=== PATIENT | female | born 1995 | race African-American/Black ===

== ENCOUNTER 2018-11-26 15:54 | Emergency (ER) | payer OTHER ==
[~2018-11-26] VITALS: Ht 170.2 cm; Wt 104.5 kg
[~2018-11-26 15:54] MED LIST: FLUT16H NASAL; OLAN2.5T3 PO; SERT50TA12 PO; TRAZ-252 PO
[2018-11-26] MEDS ORDERED: HALOPERIDOL LACTATE 5 MG/ML VIAL IM ONE (16:30)
[2018-11-26] MEDS ORDERED: DiphenhydrAMINE HCL 50 MG/ML VIAL IM ONE (16:30)
[2018-11-26] MEDS ORDERED: LORazepam 2 MG/ML VIAL IM ONE (16:30)
[2018-11-26] MEDS ORDERED: QUET100T PO (16:59)
[2018-11-26 17:55] LABS: BASOPHILS % (AUTO) 0.8 % (0.0-2.0); EOSINOPHILS % (AUTO) 0.8 % (1.0-6.0); HEMATOCRIT 32.2 % (36-46); HEMOGLOBIN 10.4 g/dL (12.0-16.0); LYMPHOCYTES # (AUTO) 1.7 K/uL (1.0-4.8); LYMPHOCYTES % (AUTO) 22.4 % (22.0-44.0); MEAN CORPUSCULAR HEMOGLOBIN 26.8 pg (26.0-34.0); MEAN CORPUSCULAR HGB CONC 32.4 G/dL (31.0-37.0); MEAN CORPUSCULAR VOLUME 83 fL (80-100); MONOCYTES # (AUTO) 1.1 K/uL (0.1-1.0); MONOCYTES % (AUTO) 13.9 % (2.0-9.0); NEUTROPHILS # (AUTO) 4.7 K/uL (1.8-7.7); NEUTROPHILS % (AUTO) 62.1 % (40.0-70.0); PLATELET COUNT (AUTO) 303 K/uL (150-450); RED BLOOD CELL COUNT(AUTO) 3.88 MIL/uL (4.00-5.20); RED CELL DISTRIBUTION WIDTH 16.3 % (11.5-14.5)
[2018-11-26 18:11] LABS: ANION GAP 12 mmol/L (8-16); CALCIUM, TOTAL 9.3 mg/dL (8.8-10.5); CARBON DIOXIDE 23 mmol/L (22-29); CHLORIDE 106 mmol/L (98-107); CREATININE 1.06 mg/dL (0.60-1.30); GLOMERULAR FILTR. RATE CALC > 60 mL/min (>60); GLUCOSE,RANDOM 82 mg/dL (70-110); POTASSIUM 3.2 mmol/L (3.5-5.1); SODIUM SERUM 141 mmol/L (136-145); UREA NITROGEN, BLOOD 12 mg/dL (7-18)
[2018-11-26 18:24] LABS: ALANINE AMINOTRANSFERASE 23 U/L (12-78); ALBUMIN 3.6 g/dL (3.4-5.0); ALKALINE PHOSPHATASE 77 U/L (46-116); ASPARTATE AMINOTRANSFERASE 21 U/L (15-37); BILIRUBIN,TOTAL 0.4 mg/dL (0.1-1.0); HCG,QUANTITATIVE < 1 mIU/mL (0-6); TOTAL PROTEIN, SERUM 6.6 g/dL (6.4-8.2)
[2018-11-26 20:01] LABS: AMPHET/METH SCREEN,URINE POSITIVE (NEGATIVE); BARBITURATE SCREEN, URINE NEGATIVE (NEGATIVE); BENZODIAZEPINES SCREEN,URINE NEGATIVE (NEGATIVE); CANNABINOID SCREEN,URINE NEGATIVE (NEGATIVE); COCAINE SCREEN,URINE NEGATIVE (NEGATIVE); METHADONE SCREEN, URINE NEGATIVE (NEGATIVE); OPIATE SCREEN,URINE NEGATIVE (NEGATIVE)
[2018-11-26 20:09] LABS: PHENCYCLIDINE SCREEN,URINE NEGATIVE (NEGATIVE)
[2018-11-26 23:40] VITALS: BP 115/62
== END 2018-11-27 00:34 | disposition short-term general hospital (02) ==
LOC: EMS 15:54
DX: F31.9 Bipolar disorder, unspecified (principal); F41.9 Anxiety disorder, unspecified; Z79.899 Other long term (current) drug therapy
CPT/HCPCS: 36415; 80053; 80307; 84702; 85025; 96372; 99291; G0480; J1200; J1630; J2060

== ENCOUNTER 2019-01-23 08:52 | Emergency (ER) | payer OTHER ==
[~2019-01-23] VITALS: Ht 177.8 cm; Wt 104.5 kg
[~2019-01-23 08:52] MED LIST changes: -FLUT16H NASAL; -OLAN2.5T3 PO; +QUET100T PO; -TRAZ-252 PO
[2019-01-23 11:32] LABS: EOSINOPHILS % (AUTO) 2.3 % (1.0-6.0); HEMATOCRIT 37.4 % (36-46); HEMOGLOBIN 11.8 g/dL (12.0-16.0); LYMPHOCYTES # (AUTO) 1.8 K/uL (1.0-4.8); LYMPHOCYTES % (AUTO) 28.7 % (22.0-44.0); MEAN CORPUSCULAR HEMOGLOBIN 27.3 pg (26.0-34.0); MEAN CORPUSCULAR HGB CONC 31.4 G/dL (31.0-37.0); MEAN CORPUSCULAR VOLUME 87 fL (80-100); MONOCYTES # (AUTO) 0.5 K/uL (0.1-1.0); MONOCYTES % (AUTO) 7.5 % (2.0-9.0); NEUTROPHILS # (AUTO) 3.8 K/uL (1.8-7.7); NEUTROPHILS % (AUTO) 60.5 % (40.0-70.0); PLATELET COUNT (AUTO) 284 K/uL (150-450); RED BLOOD CELL COUNT(AUTO) 4.31 MIL/uL (4.00-5.20)
[2019-01-23 11:43] LABS: ANION GAP 12 mmol/L (8-16); CALCIUM, TOTAL 9.3 mg/dL (8.8-10.5); CARBON DIOXIDE 24 mmol/L (22-29); CHLORIDE 106 mmol/L (98-107); CREATININE 1.19 mg/dL (0.60-1.30); GLOMERULAR FILTR. RATE CALC > 60 mL/min (>60); GLUCOSE,RANDOM 75 mg/dL (70-110); POTASSIUM 3.6 mmol/L (3.5-5.1); SODIUM SERUM 142 mmol/L (136-145); UREA NITROGEN, BLOOD 13 mg/dL (7-18)
[2019-01-23 11:54] LABS: ALANINE AMINOTRANSFERASE 20 U/L (12-78); ALBUMIN 3.5 g/dL (3.4-5.0); ALKALINE PHOSPHATASE 83 U/L (46-116); ASPARTATE AMINOTRANSFERASE 18 U/L (15-37); BILIRUBIN,TOTAL 0.3 mg/dL (0.1-1.0); HCG,QUANTITATIVE < 1 mIU/mL (0-6); TOTAL PROTEIN, SERUM 7.4 g/dL (6.4-8.2)
[2019-01-23] MEDS ORDERED: QUEtiapine FUMARATE 100 MG TABLET PO ONE (12:30)
[2019-01-23] MEDS ORDERED: LORazepam 2 MG/ML VIAL IM ONE ×2 (12:45→15:15)
[2019-01-23] MEDS ORDERED: HALOPERIDOL LACTATE 5 MG/ML VIAL IM ONE ×2 (12:45→15:15)
[2019-01-23] MEDS ORDERED: DiphenhydrAMINE HCL 50 MG/ML VIAL IM ONE ×2 (12:45→15:15)
[2019-01-23 17:42] VITALS: BP 116/73
== END 2019-01-23 18:17 | disposition short-term general hospital (02) ==
LOC: EMS 08:53
DX: F32.3 Major depressive disorder, single episode, severe with psychotic features (principal); R45.851 Suicidal ideations; F41.9 Anxiety disorder, unspecified; Z79.899 Other long term (current) drug therapy
CPT/HCPCS: 36415; 80053; 84702; 85025; 93005; 96372; 99291; G0480; J1200; J1630; J2060

== ENCOUNTER 2019-03-23 05:02 | Emergency (ER) | payer OTHER ==
[~2019-03-23] VITALS: Ht 170.2 cm; Wt 113.6 kg
[2019-03-23] MEDS ORDERED: HALOPERIDOL 5 MG TABLET PO ONE (05:45)
[2019-03-23] MEDS ORDERED: LORazepam 1 MG TABLET PO ONE (06:00)
[2019-03-23] MEDS ORDERED: LIDOCAINE 1%/EPI 1:200,000/PF 10 ML VIAL INJ ONE (06:45)
[2019-03-23] MEDS ORDERED: PERTUSS(ACELL),DIPH,TET VAC/PF 0.5 ML VIAL IM ONE (06:45)
[2019-03-23 07:26] VITALS: BP 139/76
== END 2019-03-23 07:44 | disposition home or self-care (01) ==
LOC: EMS 05:05
DX: S61.442A Puncture wound with foreign body of left hand, initial encounter (principal); R45.1 Restlessness and agitation; F31.9 Bipolar disorder, unspecified; F41.9 Anxiety disorder, unspecified; Z02.89 Encounter for other administrative examinations; Z79.899 Other long term (current) drug therapy; Y35.893A Legal intervention involving other specified means, suspect injured, initial encounter; Y93.89 Activity, other specified; Y92.89 Other specified places as the place of occurrence of the external cause; Y99.8 Other external cause status
CPT/HCPCS: 10120; 90471; 90715; J3490

== ENCOUNTER 2019-04-21 11:39 | Emergency (ER) | payer OTHER ==
[~2019-04-21] VITALS: Ht 170.2 cm; Wt 111.3 kg
[2019-04-21] MEDS ORDERED: LORazepam 2 MG/ML VIAL IM ONE ×2 (13:30→19:30)
[2019-04-21 14:00] LABS: BASOPHILS % (AUTO) 0.8 % (0.0-2.0); EOSINOPHILS % (AUTO) 1.3 % (1.0-6.0); HEMATOCRIT 41.3 % (36-46); HEMOGLOBIN 13.6 g/dL (12.0-16.0); LYMPHOCYTES # (AUTO) 2.4 K/uL (1.0-4.8); LYMPHOCYTES % (AUTO) 29.3 % (22.0-44.0); MEAN CORPUSCULAR HEMOGLOBIN 29.5 pg (26.0-34.0); MEAN CORPUSCULAR HGB CONC 32.9 G/dL (31.0-37.0); MEAN CORPUSCULAR VOLUME 90 fL (80-100); MONOCYTES # (AUTO) 0.8 K/uL (0.1-1.0); MONOCYTES % (AUTO) 10.2 % (2.0-9.0); NEUTROPHILS # (AUTO) 4.8 K/uL (1.8-7.7); NEUTROPHILS % (AUTO) 58.4 % (40.0-70.0); PLATELET COUNT (AUTO) 328 K/uL (150-450); RED BLOOD CELL COUNT(AUTO) 4.61 MIL/uL (4.00-5.20); RED CELL DISTRIBUTION WIDTH 16.2 % (11.5-14.5)
[2019-04-21 14:10] LABS: ANION GAP 11 mmol/L (8-16); CARBON DIOXIDE 27 mmol/L (22-29); CHLORIDE 103 mmol/L (98-107); CREATININE 1.12 mg/dL (0.60-1.30); GLOMERULAR FILTR. RATE CALC > 60 mL/min (>60); GLUCOSE,RANDOM 99 mg/dL (70-110); POTASSIUM 3.6 mmol/L (3.5-5.1); SODIUM SERUM 141 mmol/L (136-145); UREA NITROGEN, BLOOD 14 mg/dL (7-18)
[2019-04-21 14:16] LABS: ALANINE AMINOTRANSFERASE 25 U/L (12-78); ALBUMIN 3.7 g/dL (3.4-5.0); ALKALINE PHOSPHATASE 77 U/L (46-116); ASPARTATE AMINOTRANSFERASE 14 U/L (15-37); BILIRUBIN,TOTAL 0.4 mg/dL (0.1-1.0); TOTAL PROTEIN, SERUM 7.9 g/dL (6.4-8.2)
[2019-04-21 16:04] LABS: AMPHET/METH SCREEN,URINE POSITIVE (NEGATIVE); BARBITURATE SCREEN, URINE NEGATIVE (NEGATIVE); BENZODIAZEPINES SCREEN,URINE NEGATIVE (NEGATIVE); CANNABINOID SCREEN,URINE NEGATIVE (NEGATIVE); COCAINE SCREEN,URINE NEGATIVE (NEGATIVE); METHADONE SCREEN, URINE NEGATIVE (NEGATIVE); OPIATE SCREEN,URINE NEGATIVE (NEGATIVE)
[2019-04-21 16:09] LABS: PHENCYCLIDINE SCREEN,URINE NEGATIVE (NEGATIVE)
[2019-04-21 20:16] VITALS: BP 114/80
== END 2019-04-21 20:31 | disposition short-term general hospital (02) ==
LOC: EMS 11:39
DX: F25.9 Schizoaffective disorder, unspecified (principal); F41.9 Anxiety disorder, unspecified; F31.9 Bipolar disorder, unspecified
CPT/HCPCS: 36415; 80053; 80307; 85025; 93005; 99285; G0480; J2060

== ENCOUNTER 2020-05-23 13:28 | Emergency (ER) | payer OTHER, MEDICAID ==
[~2020-05-23] VITALS: Ht 170.2 cm; Wt 107.0 kg
[2020-05-23] MEDS ORDERED: HYD50 PO (16:12)
[2020-05-23] MEDS ORDERED: LITH300T PO (16:12)
[2020-05-23] MEDS ORDERED: ATEN-73 PO (16:12)
[2020-05-23] MEDS ORDERED: ZOLP10TA8 PO (16:12)
[2020-05-23] MEDS ORDERED: OLAN10TA3 PO (16:12)
[2020-05-23] MEDS ORDERED: DABI150 PO (16:12)
[2020-05-23] MEDS ORDERED: MONT-35 PO (16:12)
[2020-05-23] MEDS ORDERED: BUPR-93 PO (16:12)
[2020-05-23] MEDS ORDERED: CHOL100018 PO (16:12)
[2020-05-23] MEDS ORDERED: FERR-89 PO (16:12)
[2020-05-23 17:19] LABS: COVID AG,FIA SOURCE NASOPHARYNGEAL
[2020-05-23 18:42] VITALS: BP 118/70
== END 2020-05-23 19:17 | disposition home or self-care (01) ==
LOC: EMS 13:28
DX: J40 Bronchitis, not specified as acute or chronic (principal); F41.9 Anxiety disorder, unspecified; F31.9 Bipolar disorder, unspecified; I10 Essential (primary) hypertension; Z20.828 Contact with and (suspected) exposure to other viral communicable diseases
CPT/HCPCS: 87426; 71045-TC

== ENCOUNTER 2022-07-23 16:39 | Inpatient (IN) | payer MEDICARE, MEDICAID ==
[~2022-07-23] VITALS: Ht 172.7 cm; Wt 125.4 kg
[~2022-07-23 16:39] MED LIST changes: +ATEN-73 PO; +BUPR-50 PO; +CHOL25TA4 PO; +DABI150C2 PO; +FERR325T27 PO; +HYDR-4584 PO; +LITH300T PO; +MONT-35 PO; +OLAN10TA74 PO; -QUET100T PO; -SERT50TA12 PO; +ZOLP10TA8 PO
[2022-07-23] MEDS ORDERED: LORazepam 2 MG/ML VIAL IM ONE (17:15)
[2022-07-23] MEDS ORDERED: DiphenhydrAMINE HCL 50 MG/ML VIAL IM ONE (17:15)
[2022-07-23] MEDS ORDERED: HALOPERIDOL LACTATE 5 MG/ML VIAL IM ONE (17:15)
[2022-07-23] MEDS ORDERED: SODIUM CHLORIDE 0.9% 250 ML IRRIG SOLUTION BOTTLE IRRIG ONE (17:30)
[2022-07-23] MEDS ORDERED: PERTUSS(ACELL),DIPH,TET VAC/PF 0.5 ML SYRINGE IM. ONE (17:30)
[2022-07-23 17:40] LABS: BASOPHILS % (AUTO) 0.1 % (0.0-2.0); EOSINOPHILS % (AUTO) 0.1 % (1.0-6.0); HEMATOCRIT 42.3 % (36-46); HEMOGLOBIN 13.2 g/dL (12.0-16.0); LYMPHOCYTES # (AUTO) 1.9 K/uL (1.0-4.8); LYMPHOCYTES % (AUTO) 32.2 % (22.0-44.0); MEAN CORPUSCULAR HEMOGLOBIN 29.5 pg (26.0-34.0); MEAN CORPUSCULAR HGB CONC 31.1 G/dL (31.0-37.0); MEAN CORPUSCULAR VOLUME 95 fL (80-100); MONOCYTES # (AUTO) 0.8 K/uL (0.1-1.0); MONOCYTES % (AUTO) 14.2 % (2.0-9.0); NEUTROPHILS # (AUTO) 3.2 K/uL (1.8-7.7); NEUTROPHILS % (AUTO) 53.4 % (40.0-70.0); PLATELET COUNT (AUTO) 214 K/uL (150-450); RED BLOOD CELL COUNT(AUTO) 4.46 MIL/uL (4.00-5.20); RED CELL DISTRIBUTION WIDTH 14.5 % (11.5-14.5)
[2022-07-23 17:40] LABS: COVID AG,FIA SOURCE NASOPHARYNGEAL
[2022-07-23 17:52] LABS: ANION GAP 15 mmol/L (8-16); CARBON DIOXIDE 23 mmol/L (22-29); CHLORIDE 106 mmol/L (98-107); CREATININE 1.09 mg/dL (0.60-1.30); GLUCOSE,RANDOM 82 mg/dL (70-110); POTASSIUM 3.8 mmol/L (3.5-5.1); SODIUM SERUM 144 mmol/L (136-145); UREA NITROGEN, BLOOD 21 mg/dL (7-18)
[2022-07-23 17:54] LABS: GLOMERULAR FILTR. RATE CALC > 60 mL/min (>60); LITHIUM < 0.20 mmol/L (0.60-1.20)
[2022-07-23 18:06] LABS: ALANINE AMINOTRANSFERASE 77 U/L (12-78); ALBUMIN 4.1 g/dL (3.4-5.0); ALKALINE PHOSPHATASE 72 U/L (46-116); ASPARTATE AMINOTRANSFERASE 76 U/L (15-37); HCG,QUANTITATIVE < 1 mIU/mL (0-6); TOTAL PROTEIN, SERUM 7.4 g/dL (6.4-8.2)
[2022-07-24 02:15] VITALS: BP 122/78
[2022-07-24] MEDS ORDERED: PNEUMOCOCCAL VACCINE POLYVALENT 0.5 ML VIAL [PPSV23] IM. ONE (03:30)
[2022-07-24] MEDS ORDERED: PETROLATUM,WHITE 28 GM JELLY TP PRN (07:15)
[2022-07-24] MEDS ORDERED: NICOTINE 14 MG/24 HOUR PATCH TD PRN (07:15)
[2022-07-24] MEDS ORDERED: GuaiFENesin/D-METHORPHAN [SUGAR-FREE] 200-20MG/10 ML SYRUP UDCUP PO PRN (07:15)
[2022-07-24] MEDS ORDERED: DOCUSATE SODIUM 100 MG CAPSULE PO PRN (07:15)
[2022-07-24] MEDS ORDERED: IBUPROFEN 400 MG TABLET PO PRN (07:15)
[2022-07-24] MEDS ORDERED: MAG HYDROX/AL HYDROX/SIMETH ES 30 ML SUSPENSION UDCUP PO PRN (07:15)
[2022-07-24] MEDS ORDERED: MAGNESIUM HYDROXIDE SUSPENSION 30 ML UDCUP PO PRN (07:15)
[2022-07-24] MEDS ORDERED: ALBUTEROL SULFATE HFA 90 MCG/PUFF 8 GM INHALER IH PRN (07:15)
[2022-07-24] MEDS ORDERED: ACETAMINOPHEN 325 MG TABLET PO PRN (07:15)
[2022-07-24] MEDS ORDERED: CloNIDine HCL 0.1 MG TABLET PO PRN (07:15)
[2022-07-24] MEDS: FERROUS SULFATE 325 MG EC TABLET PO SCH ×2 (07:18→16:30)
[2022-07-24] MEDS ORDERED: FERROUS SULFATE 325 MG EC TABLET PO SCH (07:30)
[2022-07-24] MEDS: ATENOLOL 25 MG TABLET PO SCH (08:54)
[2022-07-24] MEDS: CHOLECALCIFEROL (VIT D3) 1,000 UNITS [25 MCG] TABLET PO SCH (08:55)
[2022-07-24 09:00] VITALS: BP 130/80
[2022-07-24] MEDS: BuPROPion HCL XL 150 MG ER TABLET PO SCH (12:25)
[2022-07-24] MEDS: BusPIRone HCL 10 MG TABLET PO SCH ×2 (12:25→16:29)
[2022-07-24] MEDS: OLANZapine 10 MG TABLET PO SCH ×2 (12:26→20:55)
[2022-07-24 16:06] VITALS: BP 123/81
[2022-07-24] MEDS: MONTELUKAST SODIUM 10 MG TABLET PO SCH (20:55)
[2022-07-25] MEDS: FERROUS SULFATE 325 MG EC TABLET PO SCH ×2 (06:39→16:19)
[2022-07-25 08:49] VITALS: BP 128/67
[2022-07-25] MEDS: OLANZapine 10 MG TABLET PO SCH ×2 (08:49→21:17)
[2022-07-25] MEDS: BusPIRone HCL 10 MG TABLET PO SCH ×2 (08:50→16:19)
[2022-07-25] MEDS: CHOLECALCIFEROL (VIT D3) 1,000 UNITS [25 MCG] TABLET PO SCH (08:50)
[2022-07-25] MEDS: BuPROPion HCL XL 150 MG ER TABLET PO SCH (08:51)
[2022-07-25] MEDS: ATENOLOL 25 MG TABLET PO SCH (09:00)
[2022-07-25 16:02] VITALS: BP 132/84
[2022-07-25 20:30] VITALS: BP 120/69
[2022-07-25] MEDS: MONTELUKAST SODIUM 10 MG TABLET PO SCH (21:17)
[2022-07-26] MEDS: FERROUS SULFATE 325 MG EC TABLET PO SCH ×2 (06:55→16:08)
[2022-07-26 08:00] VITALS: BP 96/54
[2022-07-26] MEDS: OLANZapine 10 MG TABLET PO SCH ×2 (08:34→20:48)
[2022-07-26] MEDS: BusPIRone HCL 10 MG TABLET PO SCH ×2 (08:34→16:08)
[2022-07-26] MEDS: CHOLECALCIFEROL (VIT D3) 1,000 UNITS [25 MCG] TABLET PO SCH (08:35)
[2022-07-26] MEDS: BuPROPion HCL XL 150 MG ER TABLET PO SCH (08:35)
[2022-07-26] MEDS: ATENOLOL 25 MG TABLET PO SCH (09:00)
[2022-07-26 16:00] VITALS: BP 115/72
[2022-07-26] MEDS: MONTELUKAST SODIUM 10 MG TABLET PO SCH (20:48)
[2022-07-27] MEDS: FERROUS SULFATE 325 MG EC TABLET PO SCH ×2 (06:32→16:30)
[2022-07-27 08:42] VITALS: BP 133/90
[2022-07-27] MEDS: ATENOLOL 25 MG TABLET PO SCH (08:44)
[2022-07-27] MEDS: BuPROPion HCL XL 150 MG ER TABLET PO SCH (08:44)
[2022-07-27] MEDS: BusPIRone HCL 10 MG TABLET PO SCH ×2 (08:44→16:30)
[2022-07-27] MEDS: OLANZapine 10 MG TABLET PO SCH ×2 (08:46→21:00)
[2022-07-27] MEDS: CHOLECALCIFEROL (VIT D3) 1,000 UNITS [25 MCG] TABLET PO SCH (08:46)
[2022-07-27 16:38] VITALS: BP 100/67
[2022-07-27] MEDS: MONTELUKAST SODIUM 10 MG TABLET PO SCH (21:00)
[2022-07-28] MEDS: FERROUS SULFATE 325 MG EC TABLET PO SCH ×2 (06:36→17:39)
[2022-07-28 08:56] VITALS: BP 95/54
[2022-07-28] MEDS: BusPIRone HCL 10 MG TABLET PO SCH ×2 (09:28→17:39)
[2022-07-28] MEDS: CHOLECALCIFEROL (VIT D3) 1,000 UNITS [25 MCG] TABLET PO SCH (09:29)
[2022-07-28] MEDS: BuPROPion HCL XL 150 MG ER TABLET PO SCH (09:29)
[2022-07-28] MEDS: OLANZapine 10 MG TABLET PO SCH ×2 (09:29→20:35)
[2022-07-28] MEDS: ATENOLOL 25 MG TABLET PO SCH (09:50)
[2022-07-28 16:59] VITALS: BP 102/64
[2022-07-28] MEDS: MONTELUKAST SODIUM 10 MG TABLET PO SCH (20:35)
[2022-07-29] MEDS: FERROUS SULFATE 325 MG EC TABLET PO SCH ×2 (06:59→18:56)
[2022-07-29 08:00] VITALS: BP 105/61
[2022-07-29] MEDS: CHOLECALCIFEROL (VIT D3) 1,000 UNITS [25 MCG] TABLET PO SCH (10:53)
[2022-07-29] MEDS: BusPIRone HCL 10 MG TABLET PO SCH ×2 (10:53→18:49)
[2022-07-29] MEDS: BuPROPion HCL XL 150 MG ER TABLET PO SCH (10:53)
[2022-07-29] MEDS: OLANZapine 10 MG TABLET PO SCH ×2 (10:53→21:13)
[2022-07-29] MEDS: ATENOLOL 25 MG TABLET PO SCH (10:53)
[2022-07-29 16:00] VITALS: BP 100/69
[2022-07-29] MEDS: MONTELUKAST SODIUM 10 MG TABLET PO SCH (21:13)
[2022-07-30] MEDS: FERROUS SULFATE 325 MG EC TABLET PO SCH ×2 (06:41→16:25)
[2022-07-30 07:20] LABS: COVID AG,FIA SOURCE NASAL SWAB
[2022-07-30 09:41] VITALS: BP 106/50
[2022-07-30] MEDS: BuPROPion HCL XL 150 MG ER TABLET PO SCH (10:12)
[2022-07-30] MEDS: OLANZapine 10 MG TABLET PO SCH ×2 (10:12→20:58)
[2022-07-30] MEDS: CHOLECALCIFEROL (VIT D3) 1,000 UNITS [25 MCG] TABLET PO SCH (10:12)
[2022-07-30] MEDS: BusPIRone HCL 10 MG TABLET PO SCH ×2 (10:12→16:25)
[2022-07-30] MEDS: ATENOLOL 25 MG TABLET PO SCH (10:12)
[2022-07-30 16:31] VITALS: BP 104/62
[2022-07-30] MEDS: MONTELUKAST SODIUM 10 MG TABLET PO SCH (20:58)
[2022-07-30 21:17] VITALS: BP 120/84
[2022-07-31] MEDS: FERROUS SULFATE 325 MG EC TABLET PO SCH ×2 (06:39→18:20)
[2022-07-31 08:00] VITALS: BP 117/60
[2022-07-31] MEDS: BuPROPion HCL XL 150 MG ER TABLET PO SCH (10:57)
[2022-07-31] MEDS: ATENOLOL 25 MG TABLET PO SCH (10:57)
[2022-07-31] MEDS: BusPIRone HCL 10 MG TABLET PO SCH ×2 (10:57→18:20)
[2022-07-31] MEDS: OLANZapine 10 MG TABLET PO SCH ×2 (10:58→20:33)
[2022-07-31] MEDS: CHOLECALCIFEROL (VIT D3) 1,000 UNITS [25 MCG] TABLET PO SCH (10:58)
[2022-07-31 16:00] VITALS: BP 104/65
[2022-07-31] MEDS: MONTELUKAST SODIUM 10 MG TABLET PO SCH (20:33)
[2022-07-31] MEDS: TraZODone HCL 50 MG TABLET PO SCH (20:33)
[2022-08-01] MEDS: FERROUS SULFATE 325 MG EC TABLET PO SCH ×2 (06:41→16:38)
[2022-08-01 08:30] VITALS: BP 102/62
[2022-08-01] MEDS: ATENOLOL 25 MG TABLET PO SCH (09:00)
[2022-08-01] MEDS: BusPIRone HCL 10 MG TABLET PO SCH ×2 (09:39→16:38)
[2022-08-01] MEDS: OLANZapine 10 MG TABLET PO SCH ×2 (09:40→20:40)
[2022-08-01] MEDS: CHOLECALCIFEROL (VIT D3) 1,000 UNITS [25 MCG] TABLET PO SCH (09:40)
[2022-08-01] MEDS: BuPROPion HCL XL 150 MG ER TABLET PO SCH (09:40)
[2022-08-01 16:40] VITALS: BP 116/72
[2022-08-01] MEDS: MONTELUKAST SODIUM 10 MG TABLET PO SCH (20:40)
[2022-08-01] MEDS: TraZODone HCL 50 MG TABLET PO SCH (20:40)
[2022-08-01 22:55] VITALS: BP 122/78
[2022-08-02] MEDS: FERROUS SULFATE 325 MG EC TABLET PO SCH ×2 (06:52→16:48)
[2022-08-02] MEDS: ATENOLOL 25 MG TABLET PO SCH (09:00)
[2022-08-02] MEDS: BuPROPion HCL XL 150 MG ER TABLET PO SCH (09:29)
[2022-08-02] MEDS: BusPIRone HCL 10 MG TABLET PO SCH ×2 (09:29→16:48)
[2022-08-02] MEDS: OLANZapine 10 MG TABLET PO SCH ×2 (09:31→21:46)
[2022-08-02] MEDS: CHOLECALCIFEROL (VIT D3) 1,000 UNITS [25 MCG] TABLET PO SCH (09:31)
[2022-08-02 10:01] VITALS: BP 108/64
[2022-08-02] MEDS ORDERED: TUBERCULIN, PURIFIED PROTEIN DERIVATIVE 5 TU/0.1 ML SYRINGE ID ONE (12:15)
[2022-08-02 16:00] VITALS: BP 98/60
[2022-08-02] MEDS: TraZODone HCL 50 MG TABLET PO SCH (21:46)
[2022-08-02] MEDS: MONTELUKAST SODIUM 10 MG TABLET PO SCH (21:46)
[2022-08-03] MEDS: FERROUS SULFATE 325 MG EC TABLET PO SCH ×2 (06:39→16:36)
[2022-08-03] MEDS: OLANZapine 10 MG TABLET PO SCH ×2 (08:39→21:12)
[2022-08-03] MEDS: BuPROPion HCL XL 150 MG ER TABLET PO SCH (08:40)
[2022-08-03] MEDS: BusPIRone HCL 10 MG TABLET PO SCH ×2 (08:40→16:36)
[2022-08-03] MEDS: ATENOLOL 25 MG TABLET PO SCH (08:40)
[2022-08-03] MEDS: CHOLECALCIFEROL (VIT D3) 1,000 UNITS [25 MCG] TABLET PO SCH (08:42)
[2022-08-03 08:49] VITALS: BP 106/65
[2022-08-03 16:12] VITALS: BP 99/89
[2022-08-03] MEDS: MONTELUKAST SODIUM 10 MG TABLET PO SCH (21:12)
[2022-08-03] MEDS: TraZODone HCL 50 MG TABLET PO SCH (21:12)
[2022-08-04 04:25] VITALS: BP 106/63
[2022-08-04] MEDS: FERROUS SULFATE 325 MG EC TABLET PO SCH ×2 (06:49→17:07)
[2022-08-04 08:55] VITALS: BP 91/60
[2022-08-04] MEDS: ATENOLOL 25 MG TABLET PO SCH (09:00)
[2022-08-04] MEDS: OLANZapine 10 MG TABLET PO SCH ×2 (10:25→20:28)
[2022-08-04] MEDS: BusPIRone HCL 10 MG TABLET PO SCH ×2 (10:25→17:07)
[2022-08-04] MEDS: BuPROPion HCL XL 150 MG ER TABLET PO SCH (10:26)
[2022-08-04] MEDS: CHOLECALCIFEROL (VIT D3) 1,000 UNITS [25 MCG] TABLET PO SCH (10:26)
[2022-08-04 16:02] VITALS: BP 106/63
[2022-08-04] MEDS: MONTELUKAST SODIUM 10 MG TABLET PO SCH (20:29)
[2022-08-04] MEDS: TraZODone HCL 50 MG TABLET PO SCH (20:29)
[2022-08-05] MEDS: ONDANSETRON HCL 4 MG TABLET PO PRN ×2 (06:05→23:57)
[2022-08-05] MEDS: FERROUS SULFATE 325 MG EC TABLET PO SCH ×2 (06:38→17:17)
[2022-08-05 08:00] VITALS: BP 100/68
[2022-08-05] MEDS: BuPROPion HCL XL 150 MG ER TABLET PO SCH (10:18)
[2022-08-05] MEDS: ATENOLOL 25 MG TABLET PO SCH (10:19)
[2022-08-05] MEDS: BusPIRone HCL 10 MG TABLET PO SCH ×2 (10:20→17:17)
[2022-08-05] MEDS: CHOLECALCIFEROL (VIT D3) 1,000 UNITS [25 MCG] TABLET PO SCH (10:21)
[2022-08-05] MEDS: OLANZapine 10 MG TABLET PO SCH ×2 (10:22→20:55)
[2022-08-05 16:00] VITALS: BP 109/69
[2022-08-05] MEDS: LOPERAMIDE HCL 2 MG CAPSULE PO PRN (16:20)
[2022-08-05] MEDS: TraZODone HCL 50 MG TABLET PO SCH (20:55)
[2022-08-05] MEDS: MONTELUKAST SODIUM 10 MG TABLET PO SCH (20:55)
[2022-08-05] MEDS: ZOLPIDEM TARTRATE 10 MG TABLET PO PRN (22:37)
[2022-08-06] MEDS: FERROUS SULFATE 325 MG EC TABLET PO SCH ×2 (06:43→17:48)
[2022-08-06 07:30] LABS: COVID AG,FIA SOURCE NASAL SWAB
[2022-08-06 08:00] VITALS: BP 117/79
[2022-08-06] MEDS: BuPROPion HCL XL 150 MG ER TABLET PO SCH (08:52)
[2022-08-06] MEDS: CHOLECALCIFEROL (VIT D3) 1,000 UNITS [25 MCG] TABLET PO SCH (08:52)
[2022-08-06] MEDS: OLANZapine 10 MG TABLET PO SCH ×2 (08:52→20:43)
[2022-08-06] MEDS: ATENOLOL 25 MG TABLET PO SCH (08:52)
[2022-08-06] MEDS: BusPIRone HCL 10 MG TABLET PO SCH ×2 (08:52→17:49)
[2022-08-06] MEDS: ONDANSETRON HCL 4 MG TABLET PO PRN (09:00)
[2022-08-06] MEDS: LOPERAMIDE HCL 2 MG CAPSULE PO PRN (09:00)
[2022-08-06 16:26] VITALS: BP 108/70
[2022-08-06] MEDS: MONTELUKAST SODIUM 10 MG TABLET PO SCH (20:43)
[2022-08-06] MEDS: TraZODone HCL 50 MG TABLET PO SCH (20:43)
[2022-08-07] MEDS: FERROUS SULFATE 325 MG EC TABLET PO SCH ×2 (06:33→17:32)
[2022-08-07 08:02] VITALS: BP 97/57
[2022-08-07] MEDS: BusPIRone HCL 10 MG TABLET PO SCH ×2 (08:39→16:34)
[2022-08-07] MEDS: CHOLECALCIFEROL (VIT D3) 1,000 UNITS [25 MCG] TABLET PO SCH (08:40)
[2022-08-07] MEDS: BuPROPion HCL XL 150 MG ER TABLET PO SCH (08:40)
[2022-08-07] MEDS: OLANZapine 10 MG TABLET PO SCH ×2 (08:40→20:20)
[2022-08-07] MEDS: ATENOLOL 25 MG TABLET PO SCH ×2 (08:41→08:42)
[2022-08-07] MEDS: ONDANSETRON HCL 4 MG TABLET PO PRN (12:24)
[2022-08-07] MEDS: LOPERAMIDE HCL 2 MG CAPSULE PO PRN (12:24)
[2022-08-07 16:29] VITALS: BP 140/79
[2022-08-07] MEDS: MONTELUKAST SODIUM 10 MG TABLET PO SCH (20:20)
[2022-08-07] MEDS: TraZODone HCL 50 MG TABLET PO SCH (20:20)
[2022-08-08] MEDS: FERROUS SULFATE 325 MG EC TABLET PO SCH ×2 (07:09→16:14)
[2022-08-08] MEDS: CHOLECALCIFEROL (VIT D3) 1,000 UNITS [25 MCG] TABLET PO SCH (08:15)
[2022-08-08] MEDS: OLANZapine 10 MG TABLET PO SCH ×2 (08:15→20:08)
[2022-08-08] MEDS: BusPIRone HCL 10 MG TABLET PO SCH ×2 (08:15→16:14)
[2022-08-08] MEDS: ATENOLOL 25 MG TABLET PO SCH (08:15)
[2022-08-08] MEDS: BuPROPion HCL XL 150 MG ER TABLET PO SCH (08:16)
[2022-08-08 09:21] VITALS: BP 108/69
[2022-08-08 16:19] VITALS: BP 133/76
[2022-08-08] MEDS: MONTELUKAST SODIUM 10 MG TABLET PO SCH (20:08)
[2022-08-08] MEDS: TraZODone HCL 50 MG TABLET PO SCH (20:08)
[2022-08-09] MEDS: FERROUS SULFATE 325 MG EC TABLET PO SCH ×2 (06:48→16:17)
[2022-08-09] MEDS: BusPIRone HCL 10 MG TABLET PO SCH ×2 (08:49→16:17)
[2022-08-09] MEDS: BuPROPion HCL XL 150 MG ER TABLET PO SCH (08:49)
[2022-08-09] MEDS: CHOLECALCIFEROL (VIT D3) 1,000 UNITS [25 MCG] TABLET PO SCH (08:50)
[2022-08-09] MEDS: OLANZapine 10 MG TABLET PO SCH ×2 (08:50→20:31)
[2022-08-09] MEDS: ATENOLOL 25 MG TABLET PO SCH (08:50)
[2022-08-09 16:00] VITALS: BP 95/54
[2022-08-09] MEDS: MONTELUKAST SODIUM 10 MG TABLET PO SCH (20:31)
[2022-08-09] MEDS: TraZODone HCL 50 MG TABLET PO SCH (20:31)
[2022-08-10] MEDS: FERROUS SULFATE 325 MG EC TABLET PO SCH ×2 (06:57→16:05)
[2022-08-10] MEDS: BuPROPion HCL XL 150 MG ER TABLET PO SCH (08:21)
[2022-08-10] MEDS: BusPIRone HCL 10 MG TABLET PO SCH ×2 (08:21→16:05)
[2022-08-10] MEDS: OLANZapine 10 MG TABLET PO SCH ×2 (08:23→21:29)
[2022-08-10] MEDS: ATENOLOL 25 MG TABLET PO SCH (08:24)
[2022-08-10] MEDS: CHOLECALCIFEROL (VIT D3) 1,000 UNITS [25 MCG] TABLET PO SCH (08:25)
[2022-08-10 08:35] VITALS: BP 131/89
[2022-08-10 16:20] VITALS: BP 100/77
[2022-08-10 20:00] VITALS: BP 99/69
[2022-08-10] MEDS: MONTELUKAST SODIUM 10 MG TABLET PO SCH (21:29)
[2022-08-10] MEDS: TraZODone HCL 50 MG TABLET PO SCH (21:29)
[2022-08-10 21:47] VITALS: BP 99/69
[2022-08-11] MEDS: FERROUS SULFATE 325 MG EC TABLET PO SCH ×2 (06:32→16:26)
[2022-08-11 08:31] VITALS: BP 115/71
[2022-08-11] MEDS: BuPROPion HCL XL 150 MG ER TABLET PO SCH (08:44)
[2022-08-11] MEDS: BusPIRone HCL 10 MG TABLET PO SCH ×2 (08:45→16:26)
[2022-08-11] MEDS: ATENOLOL 25 MG TABLET PO SCH (08:45)
[2022-08-11] MEDS: OLANZapine 10 MG TABLET PO SCH ×2 (08:46→21:09)
[2022-08-11] MEDS: CHOLECALCIFEROL (VIT D3) 1,000 UNITS [25 MCG] TABLET PO SCH (08:46)
[2022-08-11 16:52] VITALS: BP 121/62
[2022-08-11] MEDS: MONTELUKAST SODIUM 10 MG TABLET PO SCH (21:10)
[2022-08-11] MEDS: TraZODone HCL 50 MG TABLET PO SCH (21:10)
[2022-08-11 21:53] VITALS: BP 109/69
[2022-08-12] MEDS: FERROUS SULFATE 325 MG EC TABLET PO SCH ×2 (07:04→17:48)
[2022-08-12 08:00] VITALS: BP 87/54
[2022-08-12] MEDS: BusPIRone HCL 10 MG TABLET PO SCH ×2 (10:02→17:48)
[2022-08-12] MEDS: BuPROPion HCL XL 150 MG ER TABLET PO SCH (10:02)
[2022-08-12] MEDS: ATENOLOL 25 MG TABLET PO SCH (10:03)
[2022-08-12] MEDS: OLANZapine 10 MG TABLET PO SCH ×2 (10:10→20:30)
[2022-08-12] MEDS: CHOLECALCIFEROL (VIT D3) 1,000 UNITS [25 MCG] TABLET PO SCH (10:10)
[2022-08-12 12:00] VITALS: BP 101/62
[2022-08-12 16:44] VITALS: BP 108/74
[2022-08-12] MEDS: MONTELUKAST SODIUM 10 MG TABLET PO SCH (20:30)
[2022-08-12] MEDS: TraZODone HCL 50 MG TABLET PO SCH (20:30)
[2022-08-12 21:29] VITALS: BP 107/61
[2022-08-13] MEDS: FERROUS SULFATE 325 MG EC TABLET PO SCH ×2 (06:35→16:49)
[2022-08-13 07:02] LABS: COVID AG,FIA SOURCE NASAL SWAB
[2022-08-13 08:00] VITALS: BP 123/63
[2022-08-13] MEDS: OLANZapine 10 MG TABLET PO SCH ×2 (08:24→20:12)
[2022-08-13] MEDS: CHOLECALCIFEROL (VIT D3) 1,000 UNITS [25 MCG] TABLET PO SCH (08:24)
[2022-08-13] MEDS: BusPIRone HCL 10 MG TABLET PO SCH ×2 (08:25→16:49)
[2022-08-13] MEDS: BuPROPion HCL XL 150 MG ER TABLET PO SCH (08:25)
[2022-08-13] MEDS: ATENOLOL 25 MG TABLET PO SCH (08:28)
[2022-08-13] MEDS: TraZODone HCL 50 MG TABLET PO SCH (20:12)
[2022-08-13] MEDS: MONTELUKAST SODIUM 10 MG TABLET PO SCH (20:12)
[2022-08-13 21:00] VITALS: BP 124/70
[2022-08-14] MEDS: ZOLPIDEM TARTRATE 10 MG TABLET PO PRN (00:39)
[2022-08-14] MEDS: FERROUS SULFATE 325 MG EC TABLET PO SCH ×2 (06:17→16:07)
[2022-08-14] MEDS: CHOLECALCIFEROL (VIT D3) 1,000 UNITS [25 MCG] TABLET PO SCH (08:31)
[2022-08-14] MEDS: BuPROPion HCL XL 150 MG ER TABLET PO SCH (08:31)
[2022-08-14] MEDS: BusPIRone HCL 10 MG TABLET PO SCH ×2 (08:31→16:07)
[2022-08-14] MEDS: OLANZapine 10 MG TABLET PO SCH ×2 (08:31→20:52)
[2022-08-14] MEDS: ATENOLOL 25 MG TABLET PO SCH (08:31)
[2022-08-14 09:24] VITALS: BP 143/67
[2022-08-14 17:01] VITALS: BP 134/100
[2022-08-14] MEDS: LORazepam 2 MG TABLET PO PRN (17:03)
[2022-08-14] MEDS: HALOPERIDOL 5 MG TABLET PO PRN (17:03)
[2022-08-14 17:41] LABS: GLUCOMETER DEV NAME(LOC) 3EX.2; GLUCOSE,POINT OF CARE 140 MG/DL (70-110)
[2022-08-14] MEDS: TraZODone HCL 50 MG TABLET PO SCH (20:51)
[2022-08-14] MEDS: MONTELUKAST SODIUM 10 MG TABLET PO SCH (20:52)
[2022-08-14 21:42] VITALS: BP 138/86
[2022-08-15] MEDS: FERROUS SULFATE 325 MG EC TABLET PO SCH ×2 (06:50→17:46)
[2022-08-15 09:00] VITALS: BP 100/65
[2022-08-15] MEDS: ATENOLOL 25 MG TABLET PO SCH (09:00)
[2022-08-15] MEDS: OLANZapine 10 MG TABLET PO SCH ×2 (09:06→20:34)
[2022-08-15] MEDS: CHOLECALCIFEROL (VIT D3) 1,000 UNITS [25 MCG] TABLET PO SCH (09:07)
[2022-08-15] MEDS: BuPROPion HCL XL 150 MG ER TABLET PO SCH (09:07)
[2022-08-15] MEDS: BusPIRone HCL 10 MG TABLET PO SCH ×2 (09:10→17:46)
[2022-08-15 16:00] VITALS: BP 118/69
[2022-08-15] MEDS: TraZODone HCL 50 MG TABLET PO SCH (20:35)
[2022-08-15] MEDS: MONTELUKAST SODIUM 10 MG TABLET PO SCH (20:35)
[2022-08-15] MEDS: ZOLPIDEM TARTRATE 10 MG TABLET PO PRN (23:41)
[2022-08-16 00:45] VITALS: BP 102/58
[2022-08-16] MEDS: FERROUS SULFATE 325 MG EC TABLET PO SCH ×2 (06:53→17:13)
[2022-08-16] MEDS: CHOLECALCIFEROL (VIT D3) 1,000 UNITS [25 MCG] TABLET PO SCH (08:58)
[2022-08-16] MEDS: BuPROPion HCL XL 150 MG ER TABLET PO SCH (08:58)
[2022-08-16] MEDS: BusPIRone HCL 10 MG TABLET PO SCH ×2 (08:58→17:13)
[2022-08-16] MEDS: OLANZapine 10 MG TABLET PO SCH ×2 (08:58→20:42)
[2022-08-16] MEDS: ATENOLOL 25 MG TABLET PO SCH (08:59)
[2022-08-16 09:42] VITALS: BP 108/75
[2022-08-16 18:30] VITALS: BP 110/75
[2022-08-16] MEDS: LORazepam 2 MG TABLET PO PRN (20:03)
[2022-08-16 20:05] VITALS: BP 111/69
[2022-08-16] MEDS: TraZODone HCL 50 MG TABLET PO SCH (20:42)
[2022-08-16] MEDS: MONTELUKAST SODIUM 10 MG TABLET PO SCH (20:42)
[2022-08-17 00:05] VITALS: BP 101/68
[2022-08-17] MEDS: LORazepam 2 MG TABLET PO PRN ×2 (04:09→17:24)
[2022-08-17 04:10] VITALS: BP 120/82
[2022-08-17] MEDS: HALOPERIDOL 5 MG TABLET PO PRN (04:12)
[2022-08-17] MEDS: FERROUS SULFATE 325 MG EC TABLET PO SCH ×2 (06:46→18:59)
[2022-08-17 08:19] VITALS: BP 137/84
[2022-08-17] MEDS: CHOLECALCIFEROL (VIT D3) 1,000 UNITS [25 MCG] TABLET PO SCH (08:31)
[2022-08-17] MEDS: OLANZapine 10 MG TABLET PO SCH ×2 (08:32→20:32)
[2022-08-17] MEDS: BusPIRone HCL 10 MG TABLET PO SCH ×2 (08:32→17:24)
[2022-08-17] MEDS: BuPROPion HCL XL 150 MG ER TABLET PO SCH (08:32)
[2022-08-17] MEDS: ATENOLOL 25 MG TABLET PO SCH (08:33)
[2022-08-17 16:19] VITALS: BP 131/90
[2022-08-17] MEDS: MONTELUKAST SODIUM 10 MG TABLET PO SCH (20:32)
[2022-08-17] MEDS: TraZODone HCL 50 MG TABLET PO SCH (20:32)
[2022-08-17 22:18] VITALS: BP 122/85
[2022-08-18] MEDS: FERROUS SULFATE 325 MG EC TABLET PO SCH ×2 (06:50→17:33)
[2022-08-18] MEDS: ATENOLOL 25 MG TABLET PO SCH (08:48)
[2022-08-18] MEDS: BusPIRone HCL 10 MG TABLET PO SCH ×2 (08:48→17:33)
[2022-08-18] MEDS: OLANZapine 10 MG TABLET PO SCH ×2 (08:49→20:35)
[2022-08-18] MEDS: BuPROPion HCL XL 150 MG ER TABLET PO SCH (08:49)
[2022-08-18] MEDS: CHOLECALCIFEROL (VIT D3) 1,000 UNITS [25 MCG] TABLET PO SCH (08:49)
[2022-08-18 09:21] VITALS: BP 116/65
[2022-08-18] MEDS: LORazepam 2 MG TABLET PO PRN (14:15)
[2022-08-18 16:52] VITALS: BP 92/51
[2022-08-18] MEDS: MONTELUKAST SODIUM 10 MG TABLET PO SCH (20:35)
[2022-08-18] MEDS: TraZODone HCL 50 MG TABLET PO SCH (20:35)
[2022-08-18 20:43] VITALS: BP 98/60
[2022-08-18] MEDS: ZOLPIDEM TARTRATE 10 MG TABLET PO PRN (23:02)
[2022-08-19] MEDS: FERROUS SULFATE 325 MG EC TABLET PO SCH ×2 (06:47→16:58)
[2022-08-19] MEDS: OLANZapine 10 MG TABLET PO SCH ×2 (08:55→20:45)
[2022-08-19] MEDS: CHOLECALCIFEROL (VIT D3) 1,000 UNITS [25 MCG] TABLET PO SCH (08:55)
[2022-08-19] MEDS: BusPIRone HCL 10 MG TABLET PO SCH ×2 (08:55→16:58)
[2022-08-19] MEDS: ATENOLOL 25 MG TABLET PO SCH (08:55)
[2022-08-19] MEDS: BuPROPion HCL XL 150 MG ER TABLET PO SCH (08:55)
[2022-08-19 09:05] VITALS: BP 127/76
[2022-08-19] MEDS: ONDANSETRON HCL 4 MG TABLET PO PRN (10:46)
[2022-08-19] MEDS: LORazepam 2 MG TABLET PO PRN (17:26)
[2022-08-19 17:49] VITALS: BP 118/61
[2022-08-19 20:30] VITALS: BP 108/60
[2022-08-19] MEDS: MONTELUKAST SODIUM 10 MG TABLET PO SCH (20:45)
[2022-08-19] MEDS: TraZODone HCL 50 MG TABLET PO SCH (20:45)
[2022-08-20] MEDS: ZOLPIDEM TARTRATE 10 MG TABLET PO PRN ×2 (00:53→22:28)
[2022-08-20] MEDS: ONDANSETRON HCL 4 MG TABLET PO PRN (06:06)
[2022-08-20] MEDS: FERROUS SULFATE 325 MG EC TABLET PO SCH ×2 (06:41→16:40)
[2022-08-20 08:25] VITALS: BP 112/62
[2022-08-20] MEDS: ATENOLOL 25 MG TABLET PO SCH (08:28)
[2022-08-20] MEDS: CHOLECALCIFEROL (VIT D3) 1,000 UNITS [25 MCG] TABLET PO SCH (08:29)
[2022-08-20] MEDS: BusPIRone HCL 10 MG TABLET PO SCH ×2 (08:29→16:40)
[2022-08-20] MEDS: OLANZapine 10 MG TABLET PO SCH ×2 (08:29→20:30)
[2022-08-20] MEDS: BuPROPion HCL XL 150 MG ER TABLET PO SCH (08:29)
[2022-08-20] MEDS: LORazepam 2 MG TABLET PO PRN (15:03)
[2022-08-20 16:01] VITALS: BP 135/91
[2022-08-20] MEDS: LOPERAMIDE HCL 2 MG CAPSULE PO PRN (19:24)
[2022-08-20] MEDS: MONTELUKAST SODIUM 10 MG TABLET PO SCH (20:30)
[2022-08-20] MEDS: TraZODone HCL 50 MG TABLET PO SCH (20:30)
[2022-08-20 20:41] VITALS: BP 124/56
[2022-08-21] MEDS: FERROUS SULFATE 325 MG EC TABLET PO SCH ×2 (06:36→16:04)
[2022-08-21 08:36] LABS: COVID AG,FIA SOURCE NASAL SWAB
[2022-08-21] MEDS: ATENOLOL 25 MG TABLET PO SCH (09:00)
[2022-08-21 10:00] VITALS: BP 99/73
[2022-08-21] MEDS: OLANZapine 10 MG TABLET PO SCH ×2 (10:34→20:11)
[2022-08-21] MEDS: CHOLECALCIFEROL (VIT D3) 1,000 UNITS [25 MCG] TABLET PO SCH (10:35)
[2022-08-21] MEDS: BuPROPion HCL XL 150 MG ER TABLET PO SCH (10:35)
[2022-08-21] MEDS: BusPIRone HCL 10 MG TABLET PO SCH ×2 (10:36→16:04)
[2022-08-21 16:04] VITALS: BP 110/69
[2022-08-21] MEDS: LORazepam 2 MG TABLET PO PRN (16:04)
[2022-08-21 16:35] VITALS: BP 110/69
[2022-08-21] MEDS: MONTELUKAST SODIUM 10 MG TABLET PO SCH (20:11)
[2022-08-21] MEDS: TraZODone HCL 50 MG TABLET PO SCH (20:11)
[2022-08-21 20:36] VITALS: BP 108/70
[2022-08-21] MEDS: ZOLPIDEM TARTRATE 10 MG TABLET PO PRN (22:24)
[2022-08-22] MEDS: FERROUS SULFATE 325 MG EC TABLET PO SCH ×2 (06:34→16:04)
[2022-08-22 08:00] VITALS: BP 101/66
[2022-08-22] MEDS: OLANZapine 10 MG TABLET PO SCH ×2 (08:50→20:50)
[2022-08-22] MEDS: BuPROPion HCL XL 150 MG ER TABLET PO SCH (08:50)
[2022-08-22] MEDS: BusPIRone HCL 10 MG TABLET PO SCH ×2 (08:51→16:04)
[2022-08-22] MEDS: ATENOLOL 25 MG TABLET PO SCH (08:51)
[2022-08-22] MEDS: CHOLECALCIFEROL (VIT D3) 1,000 UNITS [25 MCG] TABLET PO SCH (08:51)
[2022-08-22] MEDS: LORazepam 2 MG TABLET PO PRN (13:53)
[2022-08-22 16:00] VITALS: BP 136/97
[2022-08-22] MEDS: MONTELUKAST SODIUM 10 MG TABLET PO SCH (20:50)
[2022-08-22] MEDS: TraZODone HCL 50 MG TABLET PO SCH (20:50)
[2022-08-22 21:17] VITALS: BP 98/65
[2022-08-22] MEDS: ZOLPIDEM TARTRATE 10 MG TABLET PO PRN (22:41)
[2022-08-23] MEDS: FERROUS SULFATE 325 MG EC TABLET PO SCH ×2 (07:08→16:42)
[2022-08-23] MEDS: OLANZapine 10 MG TABLET PO SCH ×2 (08:22→20:48)
[2022-08-23] MEDS: BusPIRone HCL 10 MG TABLET PO SCH ×2 (08:22→16:42)
[2022-08-23] MEDS: CHOLECALCIFEROL (VIT D3) 1,000 UNITS [25 MCG] TABLET PO SCH (08:23)
[2022-08-23] MEDS: BuPROPion HCL XL 150 MG ER TABLET PO SCH (08:23)
[2022-08-23] MEDS: ATENOLOL 25 MG TABLET PO SCH (08:24)
[2022-08-23 08:59] VITALS: BP 142/91
[2022-08-23] MEDS: LORazepam 2 MG TABLET PO PRN (14:46)
[2022-08-23 16:16] VITALS: BP 123/67
[2022-08-23] MEDS: TraZODone HCL 50 MG TABLET PO SCH (20:48)
[2022-08-23] MEDS: MONTELUKAST SODIUM 10 MG TABLET PO SCH (20:48)
[2022-08-23 21:21] VITALS: BP 121/73
[2022-08-24] MEDS: FERROUS SULFATE 325 MG EC TABLET PO SCH ×2 (06:51→17:05)
[2022-08-24 08:41] VITALS: BP 108/77
[2022-08-24] MEDS: BusPIRone HCL 10 MG TABLET PO SCH ×2 (09:00→17:05)
[2022-08-24] MEDS: BuPROPion HCL XL 150 MG ER TABLET PO SCH (09:00)
[2022-08-24] MEDS: ATENOLOL 25 MG TABLET PO SCH (09:00)
[2022-08-24] MEDS: CHOLECALCIFEROL (VIT D3) 1,000 UNITS [25 MCG] TABLET PO SCH (09:00)
[2022-08-24] MEDS: OLANZapine 10 MG TABLET PO SCH ×2 (09:00→20:34)
[2022-08-24] MEDS: LORazepam 2 MG TABLET PO PRN (12:48)
[2022-08-24 16:00] VITALS: BP 110/74
[2022-08-24] MEDS: TraZODone HCL 50 MG TABLET PO SCH (20:35)
[2022-08-24] MEDS: MONTELUKAST SODIUM 10 MG TABLET PO SCH (20:35)
[2022-08-24 21:02] VITALS: BP 125/84
[2022-08-24] MEDS: ZOLPIDEM TARTRATE 10 MG TABLET PO PRN (22:25)
[2022-08-25] MEDS: FERROUS SULFATE 325 MG EC TABLET PO SCH ×2 (06:31→16:57)
[2022-08-25 08:05] VITALS: BP 127/89
[2022-08-25] MEDS: BuPROPion HCL XL 150 MG ER TABLET PO SCH (08:52)
[2022-08-25] MEDS: OLANZapine 10 MG TABLET PO SCH ×2 (08:52→21:31)
[2022-08-25] MEDS: CHOLECALCIFEROL (VIT D3) 1,000 UNITS [25 MCG] TABLET PO SCH (08:52)
[2022-08-25] MEDS: ATENOLOL 25 MG TABLET PO SCH (08:53)
[2022-08-25] MEDS: BusPIRone HCL 10 MG TABLET PO SCH ×2 (08:53→16:57)
[2022-08-25] MEDS: LORazepam 2 MG TABLET PO PRN (15:11)
[2022-08-25 16:19] VITALS: BP 121/84
[2022-08-25 21:28] VITALS: BP 129/77
[2022-08-25] MEDS: TraZODone HCL 50 MG TABLET PO SCH (21:31)
[2022-08-25] MEDS: MONTELUKAST SODIUM 10 MG TABLET PO SCH (21:31)
[2022-08-25] MEDS: ZOLPIDEM TARTRATE 10 MG TABLET PO PRN (22:15)
[2022-08-26] MEDS: FERROUS SULFATE 325 MG EC TABLET PO SCH ×2 (06:42→16:05)
[2022-08-26] MEDS: ATENOLOL 25 MG TABLET PO SCH (08:23)
[2022-08-26] MEDS: CHOLECALCIFEROL (VIT D3) 1,000 UNITS [25 MCG] TABLET PO SCH (08:23)
[2022-08-26] MEDS: OLANZapine 10 MG TABLET PO SCH ×2 (08:23→21:02)
[2022-08-26] MEDS: BusPIRone HCL 10 MG TABLET PO SCH ×2 (08:23→16:04)
[2022-08-26] MEDS: BuPROPion HCL XL 150 MG ER TABLET PO SCH (08:23)
[2022-08-26 09:08] VITALS: BP 107/75
[2022-08-26 16:02] VITALS: BP 107/64
[2022-08-26] MEDS: LORazepam 2 MG TABLET PO PRN (16:05)
[2022-08-26 20:57] VITALS: BP 130/83
[2022-08-26] MEDS: MONTELUKAST SODIUM 10 MG TABLET PO SCH (21:02)
[2022-08-26] MEDS: TraZODone HCL 50 MG TABLET PO SCH (21:02)
[2022-08-26] MEDS: ZOLPIDEM TARTRATE 10 MG TABLET PO PRN (22:01)
[2022-08-27] MEDS: HALOPERIDOL 5 MG TABLET PO PRN (03:43)
[2022-08-27] MEDS: LORazepam 2 MG TABLET PO PRN ×2 (03:43→16:13)
[2022-08-27] MEDS: FERROUS SULFATE 325 MG EC TABLET PO SCH ×2 (06:41→16:57)
[2022-08-27] MEDS: OLANZapine 10 MG TABLET PO SCH ×2 (09:25→21:13)
[2022-08-27] MEDS: BuPROPion HCL XL 150 MG ER TABLET PO SCH (09:26)
[2022-08-27] MEDS: BusPIRone HCL 10 MG TABLET PO SCH ×2 (09:26→16:56)
[2022-08-27] MEDS: ATENOLOL 25 MG TABLET PO SCH (09:27)
[2022-08-27] MEDS: CHOLECALCIFEROL (VIT D3) 1,000 UNITS [25 MCG] TABLET PO SCH (09:28)
[2022-08-27 10:03] VITALS: BP 113/81
[2022-08-27 16:48] VITALS: BP 131/70
[2022-08-27] MEDS: TraZODone HCL 50 MG TABLET PO SCH (21:13)
[2022-08-27] MEDS: MONTELUKAST SODIUM 10 MG TABLET PO SCH (21:13)
[2022-08-27 21:34] VITALS: BP 129/87
[2022-08-27] MEDS: ZOLPIDEM TARTRATE 10 MG TABLET PO PRN (23:05)
[2022-08-28] MEDS: FERROUS SULFATE 325 MG EC TABLET PO SCH ×2 (06:31→16:05)
[2022-08-28 06:37] LABS: COVID AG,FIA SOURCE NASAL SWAB
[2022-08-28] MEDS: BusPIRone HCL 10 MG TABLET PO SCH ×2 (08:47→16:05)
[2022-08-28] MEDS: OLANZapine 10 MG TABLET PO SCH ×2 (08:47→21:23)
[2022-08-28] MEDS: BuPROPion HCL XL 150 MG ER TABLET PO SCH (08:48)
[2022-08-28] MEDS: CHOLECALCIFEROL (VIT D3) 1,000 UNITS [25 MCG] TABLET PO SCH (08:48)
[2022-08-28] MEDS: ATENOLOL 25 MG TABLET PO SCH (08:48)
[2022-08-28] MEDS: HALOPERIDOL 5 MG TABLET PO PRN ×2 (08:49→16:05)
[2022-08-28] MEDS: LORazepam 2 MG TABLET PO PRN ×2 (08:49→16:05)
[2022-08-28 08:57] VITALS: BP 103/65
[2022-08-28 16:45] VITALS: BP 135/78
[2022-08-28] MEDS: MONTELUKAST SODIUM 10 MG TABLET PO SCH (21:23)
[2022-08-28] MEDS: TraZODone HCL 50 MG TABLET PO SCH (21:23)
[2022-08-28] MEDS: ZOLPIDEM TARTRATE 10 MG TABLET PO PRN (22:28)
[2022-08-29] MEDS: FERROUS SULFATE 325 MG EC TABLET PO SCH ×2 (07:09→16:35)
[2022-08-29] MEDS: BusPIRone HCL 10 MG TABLET PO SCH ×2 (08:07→16:35)
[2022-08-29] MEDS: ATENOLOL 25 MG TABLET PO SCH (08:07)
[2022-08-29] MEDS: BuPROPion HCL XL 150 MG ER TABLET PO SCH (08:07)
[2022-08-29] MEDS: CHOLECALCIFEROL (VIT D3) 1,000 UNITS [25 MCG] TABLET PO SCH (08:07)
[2022-08-29] MEDS: OLANZapine 10 MG TABLET PO SCH ×2 (08:07→20:43)
[2022-08-29 08:30] VITALS: BP 97/62
[2022-08-29 12:08] VITALS: BP 145/83
[2022-08-29] MEDS: LORazepam 2 MG TABLET PO PRN ×2 (12:09→20:02)
[2022-08-29 16:39] VITALS: BP 132/81
[2022-08-29] MEDS: TraZODone HCL 50 MG TABLET PO SCH (20:43)
[2022-08-29] MEDS: MONTELUKAST SODIUM 10 MG TABLET PO SCH (20:44)
[2022-08-29 20:59] VITALS: BP 109/62
[2022-08-30] MEDS: BusPIRone HCL 10 MG TABLET PO SCH ×2 (08:39→16:39)
[2022-08-30] MEDS: ATENOLOL 25 MG TABLET PO SCH (08:39)
[2022-08-30] MEDS: OLANZapine 10 MG TABLET PO SCH ×2 (08:39→20:20)
[2022-08-30] MEDS: CHOLECALCIFEROL (VIT D3) 1,000 UNITS [25 MCG] TABLET PO SCH (08:39)
[2022-08-30] MEDS: BuPROPion HCL XL 150 MG ER TABLET PO SCH (08:40)
[2022-08-30 09:58] VITALS: BP 132/75
[2022-08-30] MEDS: LORazepam 2 MG TABLET PO PRN (13:00)
[2022-08-30 16:00] VITALS: BP 104/72
[2022-08-30] MEDS: FERROUS SULFATE 325 MG EC TABLET PO SCH (17:30)
[2022-08-30] MEDS: TraZODone HCL 50 MG TABLET PO SCH (20:20)
[2022-08-30] MEDS: MONTELUKAST SODIUM 10 MG TABLET PO SCH (20:20)
[2022-08-30] MEDS: ZOLPIDEM TARTRATE 10 MG TABLET PO PRN (21:33)
[2022-08-31] MEDS: FERROUS SULFATE 325 MG EC TABLET PO SCH ×2 (06:34→17:08)
[2022-08-31 08:06] VITALS: BP 139/82
[2022-08-31] MEDS: OLANZapine 10 MG TABLET PO SCH ×2 (09:59→20:44)
[2022-08-31] MEDS: BusPIRone HCL 10 MG TABLET PO SCH ×2 (10:00→17:08)
[2022-08-31] MEDS: ATENOLOL 25 MG TABLET PO SCH (10:00)
[2022-08-31] MEDS: BuPROPion HCL XL 150 MG ER TABLET PO SCH (10:00)
[2022-08-31] MEDS: CHOLECALCIFEROL (VIT D3) 1,000 UNITS [25 MCG] TABLET PO SCH (10:01)
[2022-08-31] MEDS: LORazepam 2 MG TABLET PO PRN (12:32)
[2022-08-31 16:13] VITALS: BP 109/70
[2022-08-31 20:32] VITALS: BP 135/90
[2022-08-31] MEDS: MONTELUKAST SODIUM 10 MG TABLET PO SCH (20:45)
[2022-08-31] MEDS: TraZODone HCL 50 MG TABLET PO SCH (20:45)
[2022-08-31] MEDS: ZOLPIDEM TARTRATE 10 MG TABLET PO PRN (21:45)
[2022-09-01] MEDS: FERROUS SULFATE 325 MG EC TABLET PO SCH ×2 (06:33→17:06)
[2022-09-01 08:01] VITALS: BP 132/78
[2022-09-01] MEDS: CHOLECALCIFEROL (VIT D3) 1,000 UNITS [25 MCG] TABLET PO SCH (08:38)
[2022-09-01] MEDS: OLANZapine 10 MG TABLET PO SCH ×2 (08:38→21:08)
[2022-09-01] MEDS: ATENOLOL 25 MG TABLET PO SCH (08:38)
[2022-09-01] MEDS: BuPROPion HCL XL 150 MG ER TABLET PO SCH (08:38)
[2022-09-01] MEDS: BusPIRone HCL 10 MG TABLET PO SCH ×2 (08:38→17:06)
[2022-09-01] MEDS: LORazepam 2 MG TABLET PO PRN (14:20)
[2022-09-01 16:50] VITALS: BP 141/73
[2022-09-01 20:34] VITALS: BP 118/80
[2022-09-01] MEDS: TraZODone HCL 50 MG TABLET PO SCH (21:08)
[2022-09-01] MEDS: MONTELUKAST SODIUM 10 MG TABLET PO SCH (21:08)
[2022-09-01] MEDS: ZOLPIDEM TARTRATE 10 MG TABLET PO PRN (23:07)
[2022-09-02] MEDS: FERROUS SULFATE 325 MG EC TABLET PO SCH ×2 (07:07→16:26)
[2022-09-02] MEDS: BusPIRone HCL 10 MG TABLET PO SCH ×2 (08:15→16:26)
[2022-09-02] MEDS: ATENOLOL 25 MG TABLET PO SCH (08:15)
[2022-09-02] MEDS: BuPROPion HCL XL 150 MG ER TABLET PO SCH (08:16)
[2022-09-02] MEDS: OLANZapine 10 MG TABLET PO SCH ×2 (08:17→20:47)
[2022-09-02] MEDS: CHOLECALCIFEROL (VIT D3) 1,000 UNITS [25 MCG] TABLET PO SCH (08:18)
[2022-09-02 10:18] VITALS: BP 110/68
[2022-09-02 10:22] VITALS: BP_SYST 120; BP_SYST 20; BP_DIAS 78
[2022-09-02] MEDS: LORazepam 2 MG TABLET PO PRN (14:27)
[2022-09-02 16:14] VITALS: BP 111/61
[2022-09-02] MEDS: MONTELUKAST SODIUM 10 MG TABLET PO SCH (20:47)
[2022-09-02] MEDS: TraZODone HCL 50 MG TABLET PO SCH (20:47)
[2022-09-02 21:02] VITALS: BP 116/76
[2022-09-02] MEDS: ZOLPIDEM TARTRATE 10 MG TABLET PO PRN (21:56)
[2022-09-03] MEDS: FERROUS SULFATE 325 MG EC TABLET PO SCH ×2 (06:41→16:39)
[2022-09-03 08:45] VITALS: BP 115/67
[2022-09-03] MEDS: CHOLECALCIFEROL (VIT D3) 1,000 UNITS [25 MCG] TABLET PO SCH (09:15)
[2022-09-03] MEDS: OLANZapine 10 MG TABLET PO SCH ×2 (09:15→20:33)
[2022-09-03] MEDS: BuPROPion HCL XL 150 MG ER TABLET PO SCH (09:15)
[2022-09-03] MEDS: ATENOLOL 25 MG TABLET PO SCH (09:15)
[2022-09-03] MEDS: BusPIRone HCL 10 MG TABLET PO SCH ×2 (09:15→16:39)
[2022-09-03] MEDS: LORazepam 2 MG TABLET PO PRN (12:33)
[2022-09-03 16:26] VITALS: BP 127/84
[2022-09-03] MEDS ORDERED: ATEN-73 PO (18:32)
[2022-09-03] MEDS ORDERED: FERR325T27 PO (18:32)
[2022-09-03] MEDS: ZOLPIDEM TARTRATE 10 MG TABLET PO PRN (20:33)
[2022-09-03] MEDS: TraZODone HCL 50 MG TABLET PO SCH (20:33)
[2022-09-03] MEDS: MONTELUKAST SODIUM 10 MG TABLET PO SCH (20:33)
[2022-09-03 20:42] VITALS: BP 126/82
[2022-09-04] MEDS: FERROUS SULFATE 325 MG EC TABLET PO SCH (06:33)
[2022-09-04 06:50] LABS: COVID AG,FIA SOURCE NASAL SWAB
[2022-09-04] MEDS: OLANZapine 10 MG TABLET PO SCH (08:30)
[2022-09-04] MEDS: BuPROPion HCL XL 150 MG ER TABLET PO SCH (08:30)
[2022-09-04] MEDS: BusPIRone HCL 10 MG TABLET PO SCH (08:31)
[2022-09-04] MEDS: CHOLECALCIFEROL (VIT D3) 1,000 UNITS [25 MCG] TABLET PO SCH (08:31)
[2022-09-04] MEDS: ATENOLOL 25 MG TABLET PO SCH (08:32)
[2022-09-04] MEDS ORDERED: BUPR-344 PO (09:29)
[2022-09-04] MEDS ORDERED: OLAN10TA74 PO (09:29)
[2022-09-04] MEDS ORDERED: BUSP10TA23 PO (09:29)
[2022-09-04] MEDS ORDERED: TRAZ-252 PO (09:29)
[2022-09-04 09:33] VITALS: BP 128/72
== END 2022-09-04 10:05 | disposition home or self-care (01) | DRG 885 ==
LOC: EMS 16:44 → 3EX 07-24 01:37
PROVIDERS: ADMIT Psychiatry & Neurology Child & Adolescent Psychiatry; ATTEND Psychiatry & Neurology Child & Adolescent Psychiatry
PROC: 3E0234Z Introduction of Serum, Toxoid and Vaccine into Muscle, Percutaneous Approach (ICD-10-PCS; principal; 2022-07-23)
DX: F25.0 Schizoaffective disorder, bipolar type (principal); D64.9 Anemia, unspecified; F15.90 Other stimulant use, unspecified, uncomplicated; F41.9 Anxiety disorder, unspecified; F84.0 Autistic disorder; I10 Essential (primary) hypertension; J45.909 Unspecified asthma, uncomplicated; K58.9 Irritable bowel syndrome, unspecified; W25.XXXA Contact with sharp glass, initial encounter; Z23 Encounter for immunization; Z20.822 Contact with and (suspected) exposure to COVID-19; Z59.00 Homelessness unspecified; Z78.1 Physical restraint status; Z79.01 Long term (current) use of anticoagulants; Z86.718 Personal history of other venous thrombosis and embolism; Z91.199 Patient's noncompliance with other medical treatment and regimen due to unspecified reason
CPT/HCPCS: 71046; 80053; 80178; 82962; 84702; 85025; 87081; 90715; 99291; G0378; G0480; Q0162; 36415-L1; 36415-TC

== ENCOUNTER 2022-09-06 17:55 | Emergency (ER) | payer MEDICARE, MEDICAID ==
[~2022-09-06] VITALS: Ht 170.2 cm; Wt 122.7 kg
[~2022-09-06 17:55] MED LIST changes: +BUPR-344 PO; +BUPR-49 PO; -BUPR-50 PO; +BUSP10TA23 PO; -DABI150C2 PO; -HYDR-4584 PO; -LITH300T PO; +OLAN10 PO; +TRAZ-252 PO; -ZOLP10TA8 PO
[2022-09-06 19:00] VITALS: BP 127/80
[2022-09-06] MEDS ORDERED: OLANZapine 5 MG RAPDIS TABLET PO ONE (19:00)
[2022-09-06] MEDS ORDERED: TraZODone HCL 50 MG TABLET PO ONE (19:00)
== END 2022-09-06 19:31 | disposition home or self-care (01) ==
LOC: EMS 17:55
DX: F41.9 Anxiety disorder, unspecified (principal); F31.9 Bipolar disorder, unspecified; I10 Essential (primary) hypertension; F20.9 Schizophrenia, unspecified; F15.90 Other stimulant use, unspecified, uncomplicated; Z86.718 Personal history of other venous thrombosis and embolism; Z76.0 Encounter for issue of repeat prescription
CPT/HCPCS: 99283

== ENCOUNTER 2024-04-19 10:52 | Inpatient (IN) | payer MEDICARE, MEDICAID ==
[~2024-04-19] VITALS: Ht 170.2 cm; Wt 137.9 kg
[2024-04-19 13:45] VITALS: BP 117/98; PULSE 91; RESP 18; TEMP 98.1; O2SAT 98
[2024-04-19] MEDS ORDERED: LOPERAMIDE HCL 2 MG CAPSULE PO PRN (15:30)
[2024-04-19] MEDS ORDERED: APIXABAN 5 MG TABLET PO SCH (15:30)
[2024-04-19] MEDS ORDERED: DOCUSATE SODIUM 100 MG CAPSULE PO PRN (15:30)
[2024-04-19] MEDS ORDERED: ALBUTEROL SULFATE HFA 90 MCG/PUFF 8 GM INHALER IH PRN (15:30)
[2024-04-19] MEDS ORDERED: NICOTINE 14 MG/24 HOUR PATCH TD PRN (15:30)
[2024-04-19] MEDS ORDERED: GuaiFENesin/D-METHORPHAN [SUGAR-FREE] 200-20MG/10 ML SYRUP UDCUP PO PRN (15:30)
[2024-04-19] MEDS ORDERED: MAGNESIUM HYDROXIDE SUSPENSION 30 ML UDCUP PO PRN (15:30)
[2024-04-19] MEDS ORDERED: ONDANSETRON 4 MG TABLET PO PRN (15:30)
[2024-04-19] MEDS ORDERED: IBUPROFEN 400 MG TABLET PO PRN (15:30)
[2024-04-19] MEDS: FERROUS SULFATE 325 MG EC TABLET PO SCH (16:46)
[2024-04-19] MEDS: MONTELUKAST SODIUM 10 MG TABLET PO SCH (21:17)
[2024-04-19] MEDS: APIXABAN 5 MG TABLET PO SCH (21:18)
[2024-04-20 04:32] VITALS: RESP 16
[2024-04-20 08:24] VITALS: BP 140/75; PULSE 99; RESP 16; TEMP 97.7; O2SAT 100
[2024-04-20] MEDS: CHOLECALCIFEROL (VIT D3) 1,000 UNITS [25 MCG] TABLET PO SCH (08:33)
[2024-04-20] MEDS ORDERED: ATENOLOL 25 MG TABLET PO SCH (09:00)
[2024-04-20] MEDS: OLANZapine 7.5 MG TABLET PO SCH (12:46)
[2024-04-20] MEDS: BuPROPion HCL XL 150 MG ER TABLET PO SCH (12:46)
[2024-04-20] MEDS: BusPIRone HCL 10 MG TABLET PO SCH (16:33)
[2024-04-20] MEDS: TraZODone HCL 50 MG TABLET PO SCH (20:42)
[2024-04-21 08:10] VITALS: BP 111/80; PULSE 86; RESP 18; TEMP 98.1; O2SAT 98
[2024-04-21 09:06] LABS: BASOPHILS % (AUTO) 0.7 % (0.0-2.0); EOSINOPHILS % (AUTO) 1.9 % (1.0-6.0); HEMATOCRIT 38.8 % (36-46); HEMOGLOBIN 12.5 g/dL (12.0-16.0); LYMPHOCYTES # (AUTO) 2.2 K/uL (1.0-4.8); MEAN CORPUSCULAR HGB CONC 32.2 G/dL (31.0-37.0); MEAN CORPUSCULAR VOLUME 93 fL (80-100); MONOCYTES # (AUTO) 0.7 K/uL (0.1-1.0); MONOCYTES % (AUTO) 13.6 % (2.0-9.0); NEUTROPHILS # (AUTO) 2.3 K/uL (1.8-7.7); NEUTROPHILS % (AUTO) 42.8 % (40.0-70.0); PLATELET COUNT (AUTO) 278 K/uL (150-450); RED BLOOD CELL COUNT(AUTO) 4.16 MIL/uL (4.00-5.20); RED CELL DISTRIBUTION WIDTH 13.8 % (11.5-14.5); WHITE BLOOD COUNT (AUTO) 5.4 K/uL (4.5-11.0)
[2024-04-21 09:34] LABS: ALANINE AMINOTRANSFERASE 38 U/L (12-78); ALKALINE PHOSPHATASE 85 U/L (46-116); ANION GAP 10 mmol/L (8-16); ASPARTATE AMINOTRANSFERASE 31 U/L (15-37); BILIRUBIN,TOTAL 0.2 mg/dL (0.1-1.0); CALCIUM, TOTAL 8.4 mg/dL (8.8-10.5); CARBON DIOXIDE 25 mmol/L (22-29); CHLORIDE 108 mmol/L (98-107); CHOL/HDL RATIO 2.7 (3.9-5.7); CHOLESTEROL 129 mg/dL (131-200); GLUCOSE,RANDOM 90 mg/dL (70-110); HDL CHOLESTEROL 47 mg/dL (40-60); LDL CHOL (CALC.) 70 mg/dL (0-130); POTASSIUM 3.7 mmol/L (3.5-5.1); SODIUM SERUM 143 mmol/L (136-145); TOTAL PROTEIN, SERUM 6.4 g/dL (6.4-8.2); TRIGLYCERIDES 60 mg/dL (15-150); UREA NITROGEN, BLOOD 13 mg/dL (7-18)
[2024-04-21 10:09] LABS: HEMOGLOBIN A1C 5.3 % (3.8-5.6)
[2024-04-21 10:10] LABS: CREATININE 0.82 mg/dL (0.60-1.30); FREE T4 (FREE THYROXINE) 0.91 ng/dL (0.76-1.46); GLOMERULAR FILTR. RATE CALC > 60 mL/min (>60); HCG,QUANTITATIVE < 1 mIU/mL (0-6); T4 (THYROXINE) 6.2 mcg/dL (4.7-13.3); THYROID STIMULATING HORMONE 0.32 uIU/mL (0.36-3.74)
[2024-04-21 20:08] VITALS: BP 107/64; PULSE 72; RESP 18; TEMP 97.3; O2SAT 98
[2024-04-22 08:08] VITALS: BP 116/66; PULSE 70; RESP 16; TEMP 97.7; O2SAT 97
[2024-04-22 09:24] LABS: APPEARANCE,URINE HAZY (CLEAR); BILIRUBIN,URINE NEGATIVE (NEGATIVE); COLOR,URINE YELLOW (YELLOW); GLUCOSE, URINE (UA) NEGATIVE (NEGATIVE); KETONES,URINE NEGATIVE (NEGATIVE); LEUKOCYTE ESTERASE ,URINE NEGATIVE (NEGATIVE); NITRATE,URINE NEGATIVE (NEGATIVE); OCCULT BLOOD,URINE NEGATIVE (NEGATIVE); PH,URINE 6.5 (5.0-8.0); PH,URINE DRUG SCREEN 6.5 (5.0-8.0); PROTEIN,URINE TRACE mg/dL (NEGATIVE); SPECIFIC GRAVITIY, URINE 1.027 (1.003-1.030); UROBILINOGEN,URINE <=1.0 mg/dL (<=1.0)
[2024-04-22 09:31] LABS: ALCOHOL, URINE DRUG SCREEN NEGATIVE (NEGATIVE); AMPHET/METH SCREEN,URINE NEGATIVE (NEGATIVE); BARBITURATE SCREEN, URINE NEGATIVE (NEGATIVE); BENZODIAZEPINES SCREEN,URINE NEGATIVE (NEGATIVE); CANNABINOID SCREEN,URINE NEGATIVE (NEGATIVE); COCAINE SCREEN,URINE NEGATIVE (NEGATIVE); METHADONE SCREEN, URINE NEGATIVE (NEGATIVE); OPIATE SCREEN,URINE NEGATIVE (NEGATIVE); PHENCYCLIDINE SCREEN,URINE NEGATIVE (NEGATIVE)
[2024-04-22 23:16] VITALS: BP 107/65; PULSE 71; RESP 18; TEMP 97.3; O2SAT 98
[2024-04-23 08:11] VITALS: BP 117/69; PULSE 84; RESP 18; TEMP 98; O2SAT 98
[2024-04-23 20:16] VITALS: BP 143/84; PULSE 96; RESP 18; TEMP 97.2; O2SAT 98
[2024-04-24 08:26] VITALS: BP 123/76; PULSE 70; RESP 17; TEMP 98.1; O2SAT 97
[2024-04-24 21:58] VITALS: BP 109/74; PULSE 90; RESP 18; TEMP 98.4; O2SAT 99
[2024-04-25 08:01] VITALS: BP 120/92; PULSE 85; RESP 18; TEMP 97.9; O2SAT 100
[2024-04-25] MEDS: LORazepam 2 MG TABLET PO PRN (16:18)
[2024-04-25 20:48] VITALS: BP 125/85; PULSE 76; RESP 20; TEMP 98; O2SAT 99
[2024-04-26 09:25] VITALS: BP 107/74; PULSE 81; RESP 19; TEMP 97.9; O2SAT 99
[2024-04-26 20:05] VITALS: BP 120/83; PULSE 72; RESP 18; TEMP 97.9; O2SAT 98
[2024-04-27 08:04] VITALS: BP 121/83; PULSE 80; RESP 18; TEMP 97.9; O2SAT 98
[2024-04-27 19:07] VITALS: BP 141/100; PULSE 125; RESP 18; TEMP 98; O2SAT 98
[2024-04-27 20:03] VITALS: BP 154/94; PULSE 110; RESP 18; TEMP 98; O2SAT 100
[2024-04-28 08:03] VITALS: BP 122/81; PULSE 62; RESP 17; TEMP 99.2; O2SAT 99
[2024-04-28 20:04] VITALS: BP 122/79; PULSE 76; RESP 17; TEMP 97.6; O2SAT 99
[2024-04-29 08:23] VITALS: BP 121/79; PULSE 100; RESP 18; TEMP 97.9; O2SAT 100
[2024-04-29 20:11] VITALS: BP 104/63; PULSE 97; RESP 18; TEMP 97.4; O2SAT 98
[2024-04-30 08:15] VITALS: BP 109/80; PULSE 99; RESP 18; TEMP 98.3; O2SAT 100
[2024-04-30 20:41] VITALS: BP 110/71; PULSE 69; RESP 16; TEMP 96.9; O2SAT 100
[2024-04-30] MEDS: ZOLPIDEM TARTRATE 10 MG TABLET PO PRN (20:56)
[2024-05-01 08:29] VITALS: BP 116/76; PULSE 83; RESP 17; TEMP 97.5; O2SAT 100
[2024-05-01 20:00] VITALS: BP 129/86; PULSE 107; RESP 17; TEMP 98.3; O2SAT 99
[2024-05-02 08:13] VITALS: BP 121/78; PULSE 79; RESP 17; TEMP 98; O2SAT 98
[2024-05-02] MEDS: TUBERCULIN, PURIFIED PROTEIN DERIVATIVE 5 TU/0.1 ML SYRINGE ID ONE (18:53)
[2024-05-02 20:46] VITALS: BP 120/90; PULSE 82; RESP 16; TEMP 97.8; O2SAT 99
[2024-05-03 09:00] VITALS: BP 110/69; PULSE 72; RESP 17; TEMP 97; O2SAT 99
[2024-05-03 18:55] VITALS: RESP 17
[2024-05-03] MEDS: ACETAMINOPHEN 325 MG TABLET PO PRN (18:55)
[2024-05-03 19:55] VITALS: RESP 16
[2024-05-03 20:00] VITALS: BP 117/80; PULSE 71; RESP 18; TEMP 98.1; O2SAT 95
[2024-05-04 08:13] VITALS: BP 103/60; PULSE 76; RESP 16; TEMP 97.2; O2SAT 98
[2024-05-04 20:08] VITALS: BP 104/63; PULSE 85; RESP 18; TEMP 97.6; O2SAT 96
[2024-05-05 08:05] VITALS: BP 113/88; PULSE 80; RESP 17; TEMP 98.4; O2SAT 96
[2024-05-05 20:03] VITALS: BP 134/66; PULSE 76; RESP 18; TEMP 97.9; O2SAT 100
[2024-05-06 08:07] VITALS: BP 107/68; PULSE 80; RESP 17; TEMP 98.2; O2SAT 95
[2024-05-06 20:16] VITALS: BP 115/75; PULSE 71; RESP 17; TEMP 97.7; O2SAT 94
[2024-05-07 08:16] VITALS: BP 100/62; PULSE 70; RESP 17; TEMP 98; O2SAT 97
[2024-05-07 09:32] LABS: APPEARANCE,URINE CLEAR (CLEAR); BILIRUBIN,URINE NEGATIVE (NEGATIVE); COLOR,URINE LIGHT YELLOW (YELLOW); GLUCOSE, URINE (UA) NEGATIVE (NEGATIVE); KETONES,URINE NEGATIVE (NEGATIVE); LEUKOCYTE ESTERASE ,URINE NEGATIVE (NEGATIVE); NITRATE,URINE NEGATIVE (NEGATIVE); OCCULT BLOOD,URINE NEGATIVE (NEGATIVE); PH,URINE 7.5 (5.0-8.0); PH,URINE DRUG SCREEN 7.5 (5.0-8.0); PROTEIN,URINE TRACE mg/dL (NEGATIVE); SPECIFIC GRAVITIY, URINE 1.022 (1.003-1.030); UROBILINOGEN,URINE <=1.0 mg/dL (<=1.0)
[2024-05-07 09:46] LABS: AMPHET/METH SCREEN,URINE NEGATIVE (NEGATIVE); BARBITURATE SCREEN, URINE NEGATIVE (NEGATIVE); BENZODIAZEPINES SCREEN,URINE NEGATIVE (NEGATIVE); CANNABINOID SCREEN,URINE NEGATIVE (NEGATIVE); COCAINE SCREEN,URINE NEGATIVE (NEGATIVE); METHADONE SCREEN, URINE NEGATIVE (NEGATIVE); OPIATE SCREEN,URINE NEGATIVE (NEGATIVE); PHENCYCLIDINE SCREEN,URINE NEGATIVE (NEGATIVE)
[2024-05-07 09:49] LABS: ALCOHOL, URINE DRUG SCREEN NEGATIVE (NEGATIVE)
[2024-05-07] MEDS: HALOPERIDOL 5 MG TABLET PO PRN (12:42)
[2024-05-07 20:00] VITALS: BP 135/89; PULSE 83; RESP 17; TEMP 98.1; O2SAT 96
[2024-05-08 08:05] VITALS: BP 105/65; PULSE 84; RESP 16; TEMP 97.7; O2SAT 96
[2024-05-08 20:10] VITALS: BP 124/83; PULSE 86; RESP 16; TEMP 97; O2SAT 98
[2024-05-09 09:29] VITALS: BP 113/64; PULSE 78; RESP 18; TEMP 98.6; O2SAT 100
[2024-05-10 08:06] VITALS: BP 141/87; PULSE 90; RESP 17; TEMP 98.6; O2SAT 97
[2024-05-10] MEDS: MAG HYDROX/ALUMINUM HYD/SIMETH ES 30 ML SUSPENSION UDCUP PO PRN (13:07)
[2024-05-10] MEDS ORDERED: HALOPERIDOL LACTATE 5 MG/ML VIAL ONE (16:38)
[2024-05-10] MEDS ORDERED: LORazepam 2 MG/ML VIAL ONE (16:38)
[2024-05-10] MEDS ORDERED: DiphenhydrAMINE HCL 50 MG/ML VIAL ONE (16:38)
[2024-05-10] MEDS: HALOPERIDOL LACTATE 5 MG/ML VIAL IM ONE (16:43)
[2024-05-10] MEDS: DiphenhydrAMINE HCL 50 MG/ML VIAL IM ONE (16:44)
[2024-05-10] MEDS: LORazepam 2 MG/ML VIAL IM ONE (16:44)
[2024-05-10 20:00] VITALS: BP 121/82; PULSE 90; RESP 17; TEMP 98; O2SAT 98
[2024-05-10] MEDS: OLANZapine 10 MG TABLET PO SCH (20:33)
[2024-05-11 08:03] VITALS: BP 116/73; PULSE 100; RESP 17; TEMP 97.6; O2SAT 96
[2024-05-11 20:03] VITALS: BP 100/66; PULSE 88; RESP 17; TEMP 98; O2SAT 98
[2024-05-12 09:41] VITALS: BP 120/59; PULSE 90; RESP 16; TEMP 98.2; O2SAT 97
[2024-05-12 20:27] VITALS: BP 126/81; PULSE 90; RESP 16; TEMP 96.9; O2SAT 99
[2024-05-13 08:12] VITALS: BP 120/80; PULSE 88; RESP 16; TEMP 96.9; O2SAT 98
[2024-05-14] MEDS: QUEtiapine FUMARATE 25 MG TABLET PO ONE (10:39)
[2024-05-14 21:33] VITALS: BP 113/63; PULSE 94; RESP 18; TEMP 97.5; O2SAT 98
[2024-05-15 08:08] VITALS: BP 93/75; PULSE 73; RESP 18; TEMP 97.5; O2SAT 97
[2024-05-15] MEDS: QUEtiapine FUMARATE 100 MG TABLET PO SCH (10:20)
[2024-05-15 21:23] VITALS: BP 109/59; PULSE 76; RESP 16; TEMP 97.6; O2SAT 98
[2024-05-16 09:12] VITALS: BP 104/69; PULSE 73; RESP 16; TEMP 96.9; O2SAT 97
[2024-05-16 20:53] VITALS: BP 132/91; PULSE 98; RESP 17; TEMP 98; O2SAT 96
[2024-05-17 08:03] VITALS: BP 127/76; PULSE 70; RESP 16; TEMP 97.9; O2SAT 96
[2024-05-17] MEDS: PETROLATUM,WHITE 28 GM JELLY TP PRN (16:36)
[2024-05-17 20:02] VITALS: BP 132/74; PULSE 89; RESP 16; TEMP 97; O2SAT 98
[2024-05-17 20:17] VITALS: RESP 17
[2024-05-17 21:08] VITALS: RESP 16
[2024-05-18 08:04] VITALS: BP 94/64; PULSE 71; RESP 16; TEMP 97.4; O2SAT 95
[2024-05-18 08:44] VITALS: BP 100/65; PULSE 80; RESP 16; O2SAT 100
[2024-05-18 20:04] VITALS: BP 112/74; PULSE 92; RESP 16; TEMP 97.6; O2SAT 100
[2024-05-19 08:11] VITALS: BP 132/77; PULSE 74; RESP 16; TEMP 97.8; O2SAT 95
[2024-05-19 22:52] VITALS: BP 118/89; PULSE 80; RESP 15; TEMP 97.3; O2SAT 98
[2024-05-20 08:39] VITALS: BP 116/63; PULSE 60; RESP 18; TEMP 97.9; O2SAT 100
[2024-05-20 20:48] VITALS: BP 100/58; PULSE 87; RESP 18; TEMP 97.2; O2SAT 96
[2024-05-21 08:13] VITALS: BP 115/70; PULSE 72; RESP 19; TEMP 97.8; O2SAT 100
[2024-05-21 20:22] VITALS: BP 111/64; PULSE 87; RESP 20; TEMP 98.4; O2SAT 97
[2024-05-22 08:15] VITALS: BP 106/74; PULSE 75; RESP 17; TEMP 97.5; O2SAT 97
[2024-05-22 20:06] VITALS: BP 130/66; PULSE 78; RESP 18; TEMP 97.8; O2SAT 96
[2024-05-23 08:01] VITALS: BP 105/75; PULSE 77; RESP 16; TEMP 97.3; O2SAT 99
[2024-05-23 08:20] LABS: PH,URINE DRUG SCREEN 7.5 (5.0-8.0)
[2024-05-23 08:41] LABS: ALCOHOL, URINE DRUG SCREEN NEGATIVE (NEGATIVE); AMPHET/METH SCREEN,URINE NEGATIVE (NEGATIVE); BARBITURATE SCREEN, URINE NEGATIVE (NEGATIVE); BENZODIAZEPINES SCREEN,URINE NEGATIVE (NEGATIVE); CANNABINOID SCREEN,URINE NEGATIVE (NEGATIVE); COCAINE SCREEN,URINE NEGATIVE (NEGATIVE); METHADONE SCREEN, URINE NEGATIVE (NEGATIVE); OPIATE SCREEN,URINE NEGATIVE (NEGATIVE); PHENCYCLIDINE SCREEN,URINE NEGATIVE (NEGATIVE)
[2024-05-23] MEDS: QUEtiapine FUMARATE 25 MG TABLET PO PRN (18:54)
[2024-05-23 20:03] VITALS: BP 116/90; PULSE 90; RESP 17; TEMP 97; O2SAT 98
[2024-05-24 08:05] VITALS: BP 108/76; PULSE 77; RESP 16; TEMP 98; O2SAT 97
[2024-05-24 20:08] VITALS: BP 119/80; PULSE 80; RESP 17; TEMP 97.5; O2SAT 98
[2024-05-25 09:49] VITALS: BP 132/81; PULSE 99; RESP 18; TEMP 96.5; O2SAT 95
[2024-05-25 20:04] VITALS: BP 123/75; PULSE 104; RESP 17; TEMP 97.4; O2SAT 98
[2024-05-26 10:05] VITALS: BP 112/82; PULSE 82; RESP 17; TEMP 97; O2SAT 98
[2024-05-26 20:15] VITALS: BP 132/70; PULSE 87; RESP 18; TEMP 97.5; O2SAT 100
[2024-05-27 08:11] VITALS: BP 130/79; PULSE 86; RESP 17; TEMP 97.9; O2SAT 97
[2024-05-27 21:15] VITALS: BP 119/80; PULSE 87; RESP 16; TEMP 98.1; O2SAT 100
[2024-05-28 08:08] VITALS: BP 125/68; PULSE 75; RESP 17; TEMP 98.2; O2SAT 97
[2024-05-28 20:07] VITALS: BP 105/60; PULSE 73; RESP 17; TEMP 97.8; O2SAT 98
[2024-05-29 08:14] VITALS: BP 139/93; PULSE 110; PULSE 78; RESP 18; TEMP 98.1; O2SAT 99
[2024-05-29 20:00] VITALS: BP 122/84; PULSE 110; RESP 17; TEMP 97.4; O2SAT 97
[2024-05-30 08:18] VITALS: BP 105/64; PULSE 87; RESP 17; TEMP 97.8; O2SAT 100
[2024-05-30 20:23] VITALS: BP 90/62; PULSE 90; RESP 16; TEMP 97.5; O2SAT 100
[2024-05-31 08:43] VITALS: BP 113/72; PULSE 90; RESP 18; TEMP 98.3; O2SAT 97
[2024-05-31 21:06] VITALS: BP 128/83; PULSE 69; RESP 16; TEMP 97.9; O2SAT 98
[2024-06-01 08:05] VITALS: BP 100/50; PULSE 80; RESP 18; TEMP 98.5; O2SAT 96
[2024-06-01 08:07] VITALS: BP 104/63; PULSE 80; RESP 17; TEMP 97.8; O2SAT 94
[2024-06-01 20:36] VITALS: BP 136/93; PULSE 97; RESP 16; TEMP 98.1; O2SAT 98
[2024-06-02 07:46] VITALS: BP 106/73; PULSE 100; RESP 18; TEMP 96.9; O2SAT 96
[2024-06-02 08:00] VITALS: BP 106/73; PULSE 100; RESP 18; TEMP 96.9; O2SAT 96
[2024-06-02 20:03] VITALS: BP 115/74; PULSE 106; RESP 18; TEMP 97.7; O2SAT 98
[2024-06-03 08:08] VITALS: BP 115/85; PULSE 100; RESP 17; TEMP 97.5; O2SAT 97
[2024-06-03 20:23] VITALS: BP 128/76; PULSE 82; RESP 18; TEMP 98.1; O2SAT 96
[2024-06-04 08:06] VITALS: BP 130/85; PULSE 98; RESP 18; TEMP 96.5; O2SAT 97
[2024-06-04 20:03] VITALS: BP 104/63; PULSE 93; RESP 17; TEMP 97
[2024-06-05 08:09] VITALS: BP 109/73; PULSE 72; RESP 17; TEMP 98.1; O2SAT 95
[2024-06-05] MEDS ORDERED: QUET100T PO (13:14)
[2024-06-05] MEDS ORDERED: APIX5TAB PO (13:15)
[2024-06-05 15:26] LABS: GLUCOMETER DEV NAME(LOC) POC.BV; POC SARS-COV2 AG, FIA NEGATIVE (NEGATIVE)
[2024-06-05 20:05] VITALS: BP 97/61; PULSE 91; RESP 15; TEMP 97.6; O2SAT 96
[2024-06-06 08:22] VITALS: BP 105/72; PULSE 101; RESP 17; TEMP 97; O2SAT 98
== END 2024-06-06 10:27 | DRG 885 ==
LOC: B2X 11:28
PROVIDERS: ADMIT Psychiatry & Neurology Child & Adolescent Psychiatry; ATTEND Psychiatry & Neurology Child & Adolescent Psychiatry
PROC: GZ56ZZZ Individual Psychotherapy, Supportive (ICD-10-PCS; 2024-04-20)
PROC: GZ52ZZZ Individual Psychotherapy, Cognitive (ICD-10-PCS; 2024-04-21)
PROC: GZHZZZZ Group Psychotherapy (ICD-10-PCS; principal; 2024-04-25)
DX: F25.1 Schizoaffective disorder, depressive type (principal); Z68.42 Body mass index [BMI] 45.0-49.9, adult; E66.9 Obesity, unspecified; F41.9 Anxiety disorder, unspecified; G47.00 Insomnia, unspecified; I10 Essential (primary) hypertension; Z20.822 Contact with and (suspected) exposure to COVID-19
CPT/HCPCS: 80053; 80061; 80307; 81003; 83036; 84436; 84439; 84443; 84702; 85025; J1200; J1630; J2060

== ENCOUNTER 2024-04-27 20:22 | Emergency (ER) | payer MEDICARE, OTHER ==
[~2024-04-27] VITALS: Ht 170.2 cm; Wt 136.4 kg
[2024-04-27 22:27] VITALS: BP 108/79; PULSE 77; RESP 20; TEMP 98.4; O2SAT 100
[2024-04-27 22:46] LABS: BASOPHILS % (AUTO) 0.3 % (0.0-2.0); EOSINOPHILS % (AUTO) 0.6 % (1.0-6.0); HEMATOCRIT 41.5 % (36-46); HEMOGLOBIN 13.5 g/dL (12.0-16.0); LYMPHOCYTES # (AUTO) 1.7 K/uL (1.0-4.8); LYMPHOCYTES % (AUTO) 24.2 % (22.0-44.0); MEAN CORPUSCULAR HEMOGLOBIN 30.3 pg (26.0-34.0); MEAN CORPUSCULAR HGB CONC 32.4 G/dL (31.0-37.0); MEAN CORPUSCULAR VOLUME 93 fL (80-100); MONOCYTES # (AUTO) 0.5 K/uL (0.1-1.0); MONOCYTES % (AUTO) 6.3 % (2.0-9.0); NEUTROPHILS # (AUTO) 4.9 K/uL (1.8-7.7); NEUTROPHILS % (AUTO) 68.6 % (40.0-70.0); PLATELET COUNT (AUTO) 282 K/uL (150-450); RED BLOOD CELL COUNT(AUTO) 4.45 MIL/uL (4.00-5.20); RED CELL DISTRIBUTION WIDTH 14.2 % (11.5-14.5); WHITE BLOOD COUNT (AUTO) 7.2 K/uL (4.5-11.0)
[2024-04-27 23:10] LABS: ALCOHOL, BLOOD (SERUM) < 3 mg/dL (0-10)
[2024-04-27 23:19] LABS: ANION GAP 9 mmol/L (8-16); CALCIUM, TOTAL 8.9 mg/dL (8.8-10.5); CARBON DIOXIDE 27 mmol/L (22-29); CHLORIDE 102 mmol/L (98-107); CREATININE 0.93 mg/dL (0.60-1.30); GLOMERULAR FILTR. RATE CALC > 60 mL/min (>60); GLUCOSE,RANDOM 92 mg/dL (70-110); POTASSIUM 4.2 mmol/L (3.5-5.1); SODIUM SERUM 138 mmol/L (136-145); UREA NITROGEN, BLOOD 11 mg/dL (7-18)
[2024-04-27 23:53] LABS: ALCOHOL, URINE DRUG SCREEN NEGATIVE (NEGATIVE); AMPHET/METH SCREEN,URINE POSITIVE (NEGATIVE); BARBITURATE SCREEN, URINE NEGATIVE (NEGATIVE); BENZODIAZEPINES SCREEN,URINE NEGATIVE (NEGATIVE); CANNABINOID SCREEN,URINE NEGATIVE (NEGATIVE); COCAINE SCREEN,URINE NEGATIVE (NEGATIVE); METHADONE SCREEN, URINE NEGATIVE (NEGATIVE); OPIATE SCREEN,URINE NEGATIVE (NEGATIVE); PHENCYCLIDINE SCREEN,URINE NEGATIVE (NEGATIVE)
== END 2024-04-28 02:00 ==
LOC: EMS 20:22
DX: F25.0 Schizoaffective disorder, bipolar type (principal); R45.851 Suicidal ideations; F15.10 Other stimulant abuse, uncomplicated; F84.0 Autistic disorder; I10 Essential (primary) hypertension; K58.9 Irritable bowel syndrome, unspecified; Z86.718 Personal history of other venous thrombosis and embolism; Z79.899 Other long term (current) drug therapy
CPT/HCPCS: 99283; 80048; 84703; 85025; 36415; 80307; G0480